=== PATIENT | female | born 1955 | race Caucasian/White ===

== ENCOUNTER 2016-09-24 11:45 | Inpatient (IN) | payer BC ==
[~2016-09-24] VITALS: Ht 154.9 cm; Wt 86.0 kg
[2016-09-24 12:00] VITALS: BP 137/83; PULSE 83; TEMP 36.7; O2SAT 96
[2016-09-24] MEDS ORDERED: ONDANSETRON INJ 2 MG/ML 2 ML VIAL IV PRN (13:00)
[2016-09-24] MEDS ORDERED: DEXTROSE 50% 50 ML SYR IV PRN (13:00)
[2016-09-24] MEDS ORDERED: GLUCOSE 10 TABS/TUBE PO PRN (13:00)
[2016-09-24] MEDS ORDERED: ALUMINUM/MAGNESIUM/SIMETH (MAALOX MAX) 30 ML UDC PO PRN (13:00)
[2016-09-24] MEDS ORDERED: GLUCOSE 40% GEL 15 GM TUBE PO PRN (13:00)
[2016-09-24] MEDS ORDERED: GLUCAGON FOR INJ 1 MG VIAL SQ PRN (13:00)
[2016-09-24] MEDS ORDERED: MAGNESIUM HYDROXIDE SUSP 30 ML UDC PO PRN (13:00)
[2016-09-24] MEDS ORDERED: ACETAMINOPHEN 325 MG TAB PO PRN (13:00)
[2016-09-24] MEDS ORDERED: POLYETHYLENE (MIRALAX) 17 GM PACK PO PRN (13:00)
[2016-09-24] MEDS ORDERED: PHARMACY GLYCEMIC MGMT CONSULT PRN (13:14)
[2016-09-24] MEDS ORDERED: MoRPHine SULFATE 2 MG/ML CARP IV PRN (13:15)
[2016-09-24] MEDS: SODIUM CHLORIDE 0.9% 1000ML 1,000 ML IV SCH ×2 (13:15→22:16)
[2016-09-24 13:28] LABS: HEMATOCRIT 34.9 % (37-47); MEAN CELL VOLUME 89.9 fL (80-100); MEAN CORPUSCULAR HEMOGLOBIN 28.9 pg (25-34); MEAN CORPUSCULAR HGB CONC 32.1 g/dl (32-36); MEAN PLATELET VOLUME 9.4 fL (7.4-10.4); PLATELET COUNT 312 K/uL (130-400); RED BLOOD COUNT 3.88 M/uL (4.2-5.4); WHITE BLOOD COUNT 12.14 K/uL (4.8-10.8)
[2016-09-24] MEDS ORDERED: PIPERACILL/TAZOBAC CONSULT ACTIVE PRN (13:30)
[2016-09-24] MEDS ORDERED: VANCOMYCIN CONSULT ACTIVE PRN (13:30)
[2016-09-24] MEDS ORDERED: PATIENT'S HEIGHT AND/OR WEIGHT NEEDED SCH (13:30)
--- NOTE | 2016-09-24 13:47 | Pharmacy Progress Note ---
Glycemic Control Intl Consult Date of Service Sep 24, 2016. Scope Glycemic Pharmacist consulted by Dr Jones on 09/24/16 for glycemic control and to write orders per [facility] inpatient glycemic control protocol Objective Laboratory Data (last 24hrs) Test 09/24/16 13:14 White Blood Count 12.14 K/uL Recent Pertinent Medications Outpatient Anti-diabetic Regimen: * metformin ER 1000mg PO BID * repaglinide 4mg PO TID before meals * glyburide 5mg PO BID with meals * A1c = 7.7 % per [facility] The patient is currently receiving: * Basal insulin: * none at this time * Correctional Insulin: * REGULAR INSULIN Correction per scale ACHS * Goal Range: Low 100 mg/dL - High 140 mg/dL * Correction Factor: 30 mg/dL/unit * Per carb ratio of 1 unit per 15 grams CHO consumed * Oral Agents: * non at this time Risk Factors for Insulin Resistance: * Infection: vancomycin and piperacillin/tazobactam - day #1 * IVF: NSS * Diet: T2DM/AHA Assessment & Plan ASSESSMENT: 09/24/16 * 61 y/o known type 2 diabetic who uses oral medication as an outpatient * PO medications on hold secondary to admission - will begin correctional insulin at this time for inpatient glycemic control * A1c from [facility] shows adequate glycemic control with home regimen PLAN FOR INPATIENT GLYCEMIC CONTROL: * Basal insulin - forgo at this time * Correctional insulin * Change from Regular insulin --> NovoLog AC and HS * Correction factor: 30mg/dL/unit * Carb ratio: 1 unit per 15g of CHO consumed * Goal range: 100-140mg/dL for non-elderly, non-ICU patient * Oral medications: * hold at this time * A1c - current * added to discharge instructions * Please note that the plan above was derived based on current level of insulin resistance and hospital stress. These recommendations are appropriate for inpatient admission only. Plan of care upon discharge will need to be reassessed to avoid potential outpatient hypo/hyperglycemia. Thank you.
[2016-09-24 13:48] VITALS: BMI 35.8
[2016-09-24] MEDS ORDERED: PIPERACILL/TAZOBAC IV 4.5 GM in DEXTROSE 5% 100ML IV ONE (14:00)
[2016-09-24] MEDS ORDERED: NRN300 PO (14:11)
[2016-09-24] MEDS ORDERED: VITACAP26 PO (14:11)
[2016-09-24] MEDS ORDERED: METH2.5T PO (14:11)
[2016-09-24] MEDS ORDERED: METF-382 PO (14:11)
[2016-09-24] MEDS ORDERED: ACET-1257 PO (14:11)
[2016-09-24] MEDS ORDERED: GLYB5TAB8 PO (14:11)
[2016-09-24] MEDS ORDERED: PRVHFAIN INH (14:11)
[2016-09-24] MEDS ORDERED: TNR25 PO (14:11)
[2016-09-24] MEDS ORDERED: QUIN40TA18 PO (14:11)
[2016-09-24] MEDS ORDERED: DSY100 PO (14:11)
[2016-09-24] MEDS ORDERED: MAGNTAB10 PO (14:11)
[2016-09-24] MEDS ORDERED: REPA1TAB10 PO (14:11)
[2016-09-24] MEDS ORDERED: CLN200 PO (14:11)
[2016-09-24] MEDS ORDERED: FLUT0.15 NAE (14:11)
[2016-09-24] MEDS ORDERED: NTRGSL4 PO (14:11)
[2016-09-24] MEDS ORDERED: CHOL100010 PO (14:11)
[2016-09-24] MEDS ORDERED: FLV1 PO (14:11)
[2016-09-24] MEDS ORDERED: SALI0.6593 NAE (14:11)
[2016-09-24] MEDS ORDERED: ASPI-435 PO (14:11)
[2016-09-24] MEDS ORDERED: SIMV-151 PO (14:11)
[2016-09-24] MEDS ORDERED: POLYSOL4 OP (14:11)
[2016-09-24] MEDS ORDERED: OMEP40CA41 PO (14:11)
[2016-09-24] MEDS ORDERED: HYDR25TA4 PO (14:11)
[2016-09-24] MEDS ORDERED: ARTIFICIAL TEARS OP SOLN OP PRN ×2 (14:15)
[2016-09-24] MEDS ORDERED: SODIUM CHLORIDE 0.65% NA SOLN 45 ML (OCEAN) NAE PRN (14:15)
[2016-09-24] MEDS ORDERED: ALBUTEROL HFA 8 GM INHALER INH PRN (14:15)
[2016-09-24] MEDS ORDERED: NITROGLYCERIN 0.4 MG SL PER TAB CHARGE SL PRN (14:15)
[2016-09-24 14:20] LABS: BUN/CREATININE RATIO 29.3 (10-20); CALCIUM 9.3 mg/dl (8.5-10.1); CREATININE 0.78 mg/dl (0.60-1.20); POTASSIUM 3.9 mmol/L (3.5-5.1)
[2016-09-24 14:21] LABS: PROTHROMBIN TIME (PATIENT) 10.2 SECONDS (9.0-12.0)
[2016-09-24 14:22] LABS: ALB/GLOB RATIO 0.9 (0.9-2)
--- NOTE | 2016-09-24 14:39 | History and Physical ---
History & Physical Date & Time of Service: Sep 24, 2016 at 14:12 Chief Complaint: Cellulitis Left Foot Primary Care Physician: Dangelo Monsalve M.D. History of Present Illness Source: patient, clinic records This is a 61 year old female with PMH of DM type 2, CAD, HTN, HL, RA, asthma, and other problems listed below who presents as a direct admission from Dr. Pope, bio medical technician, for left 2nd toe diabetic ulcer with cellulitis. Pt follows with Dr. Monsalve for primary care. Patient states she developed 2 ulcers on the L second toe in May 2016 after her dog stepped on her foot. She was seeing bio medical technician Dr. Alexey Sims initially. She is currently on second course of antibiotics (she is unsure the name) started 6 days ago. She reports associated pain, erythema, and drainage. She states last week the drainage was purulent, but now appears clear. She has been able to bear weight. She denies fevers, chills, weakness, chest pain, SOB, abdominal pain, N/V/D, dysuria, frequency. She states her Metformin was recently changed and blood sugars are running low at home. Patient had prior wound culture on 09/17/16 which grew MRSA. Past Medical/Surgical History Medical Problems: (1) Asthma Status: Chronic (2) CAD (coronary artery disease) Permanent Comment: NINA to RCA 2006 Status: Chronic (3) Diabetes mellitus, type II Status: Chronic (4) Dyslipidemia Status: Chronic (5) GERD (gastroesophageal reflux disease) Status: Chronic (6) HTN (hypertension) Status: Chronic (7) Morbid obesity Status: Chronic (8) Rheumatoid arthritis Status: Chronic Surgical Problems: (1) H/O foot surgery Permanent Comment: EXOSTECTOMY METATARSAL HEAD performed by Patrick Castillo DPM at [facility] 08/2015 Status: Resolved (2) H/O heart artery stent Permanent Comment: NINA to RCA 2006 Status: Resolved (3) History of cholecystectomy Status: Resolved (4) History of tubal ligation Status: Resolved Family History Cardiac disorder FATHER ([place]) BROTHER SISTER (CAD) Diabetes mellitus MOTHER Social History Smoking Status: Never Smoker Alcohol Use: occasionally Drug Use: none Marital Status: Housing status: lives with family Occupational Status: employed Allergies Coded Allergies: Hydrocodone (Verified Adverse Reaction, Intermediate, delirium, 09/26/16) Amlodipine (Verified Adverse Reaction, Mild, GI SYMPTOMS, 09/24/16) Home Medications Scheduled Acetaminophen (Tylenol Extra Strength), 1,000 MG PO HS Aspirin (Aspirin 81), 81 MG PO DAILY Atenolol (Atenolol), 12.5 MG PO DAILY Cholecalciferol (Vitamin D), 1,000 UNIT PO BID Daptomycin (Daptomycin), 350 MG IV DAILY Fluticasone Propionate (Nasal) (Flonase Allergy Relief), 2 SPRAYS NISA DAILY Folic Acid (Folic Acid), 1 MG PO DAILY Gabapentin (Gabapentin), 300 MG PO BID Glyburide (Micronase), 5 MG PO BIDM Hydrochlorothiazide (Hctz), 12.5 MG PO DAILY Magnesium Oxide (Mg Supplement (Mag-200), 200 MG PO DAILY Metformin Ext Rel (Glucophage Ext Rel), 1,000 MG PO BID Omeprazole (Prilosec), 40 MG PO DAILY Quinapril Hcl (Accupril), 40 MG PO HS Repaglinide (Repaglinide), 4 MG PO TIDM Sulindac (Sulindac), 1 TAB PO BID Trazodone HCl (Trazodone HCl), 50 MG PO BID Vitamins C & E (Vitamin C), 1,000 MG PO BID Scheduled PRN Albuterol (Ventolin Hfa), 2 PUFFS INH Q6 PRN for Shortness of Breath Nitroglycerin (Nitrostat), 1 TAB PO UD PRN for Chest Pain Oxycodone/Acetaminophen 5MG/325MG (Percocet 5MG/325MG), 1 TABLET PO Q6H PRN for Pain Polyethylene Glycol-Propylene (Systane), 1 DROPS OP QID PRN for DRYNESS Saline ([facility] Saline Nose [place]), 1 SPRAY NISA Q2H PRN for nasal congestion or dryness Review of Systems Constitutional: No chills, No fever Eyes: No worsening of vision ENT: No nasal symptoms Respiratory: No cough, No dyspnea on exertion, No shortness of breath Cardiovascular: No chest pain, No palpitations Abdomen: No diarrhea, No nausea, No pain, No vomiting Musculoskeletal: + problem reported (states joint pain is controlled) Genitourinary - Female: No dysuria, No urinary frequency Hematologic / Lymphatic: + abnormal bleeding/bruising (bruises easily. denies abnormal bleeding) Integumentary: + problem reported (see HPI) Physical Exam Vital Signs Date Time Temp Pulse Resp B/P Pulse Ox O2 Delivery O2 Flow Rate FiO2 09/24/16 12:00 Room Air 09/24/16 12:00 36.7 83 16 137/83 96 Room Air General Appearance: no apparent distress, + obese, + pertinent finding ( pleasant alert 61 year old female, at bedside) Head: normocephalic, atraumatic Eyes: normal inspection, sclerae normal ENT: hearing grossly normal Neck: supple, trachea midline Respiratory/Chest: lungs clear, normal breath sounds, no respiratory distress Cardiovascular: regular rate, rhythm, normal peripheral pulses Abdomen/GI: normal bowel sounds, non tender, soft Extremities/Musculoskelatal: no calf tenderness, normal capillary refill, no pedal edema, + pertinent finding (DP pulses 2+ bilaterally) Neurologic/Psych: alert, normal mood/affect, oriented x 3, + pertinent finding (grossly nonfocal ) Skin: warm/dry, + pertinent finding (superficial ulceration medial side of left 2nd toe, not actively draining, + surrounding erythma of the toe) Diagnostics Laboratory Results Results Past 24 Hours Test 09/24/16 13:03 09/24/16 13:14 09/24/16 13:46 09/24/16 13:57 Range/Units White Blood Count 12.14 4.8-10.8 K/uL Red Blood Count 3.88 4.2-5.4 M/uL Hemoglobin 11.2 12.0-16.0 g/dL Hematocrit 34.9 37-47 % Mean Corpuscular Volume 89.9 80-100 fL Mean Corpuscular Hemoglobin 28.9 25-34 pg Mean Corpuscular Hemoglobin Concent 32.1 32-36 g/dl RDW Standard Deviation 47.5 36.4-46.3 fL RDW Coefficient of Variation 14.6 11.5-14.5 % Platelet Count 312 130-400 K/uL Mean Platelet Volume 9.4 7.4-10.4 fL Lactic Acid Level 3.0 0.4-2.0 mmol/L Bedside Glucose 117 70-90 mg/dl Impression Assessment and Plan LEFT FOOT DIABETIC ULCER WITH CELLULITIS Afebrile; +leukocytosis (WBC 12.1); no tachycardia or hypotension; lactic acid 3.0 Sent for direct admission by bio medical technician Dr. Pope; also following with bio medical technician Dr. Sims Has been on unknown antibiotics as outpatient Wound culture on 09/17/16 which grew MRSA Check x-ray and MRI of left foot Check wound culture Empiric Vancomycin and Zosyn IV fluids Consult infectious disease and podiatry Consult would care nurse Trend serial lactic acid DM TYPE 2 Pt reports hypoglycemia at home Hold oral antidiabetic medications Insulin sliding scale coverage Consult pharmacy for glycemic control Check A1c HYPERTENSION BP is stable Continue atenolol Hold quinapril and HCTZ CAD Stable Continue aspirin, beta iglesia, statin DAVID-I held ASTHMA Not in exacerbation Continue home PRN inhaler RHEUMATOID ARTHRITIS Hold methotrexate during hospitalization GERD Continue PPI DVT PROPHYLAXIS Heparin SQ DISPOSITION Admitted to med/ surg Lives with Follows with Dr. Monsalve for primary care Patient seen in collaboration with Dr. Jones. Please see her addendum. ATTENDING NOTE : pt seen and examined, in agreement with above H&P by Carmen Felder 61 yo F sent form podiatry office of for non healing diabetic left foot infection MRI Of left foot ordered ; shows evidence of osteomyelitis PICC line ordered for senior care Abx may need 6-8 weeks of tx ID eval requested out pt wound culture + ve MRSA VTE Prophylaxis VTE Risk Assessment Done? Y/N: Yes Risk Level: Moderate
[2016-09-24] MEDS ORDERED: VANCOMYCIN INJ 2,150 MG in SODIUM CHLORIDE 0.9% 500ML 500 ML IV ONE (14:45)
--- NOTE | 2016-09-24 14:45 | Medical Consult ---
Consultation Date of Consultation: Sep 24, 2016. Attending Physician: Liya Wilsno DO Reason for Consultation: Diabetic left second toe ulceration- nonhealing History of Present Illness Patient is a 61 yo female presenting to the hospital for admission regarding left 2nd toe ulceration that has been nonhealing since May. The patient does have history of diabetes and rheumatoid arthritis with long-term treatment. She states that she has had a non-healing ulceration on her left 2nd toe since approximately May. At that time, her 40 lb dog stepped on her toe at home and caused an ulcer to form. She states that over the next month or so, her toe was swollen and red but she knew that she would be seeing Dr. Sims, her timber framer soon after to get her toenails cut, so she waited until that appointment to discuss these changes. She then was treated by Dr. Sims for infection in that toe. She was treated with 2 weeks of an antibiotic that she cannot remember the name of. She then was off of antibiotics for about 2 weeks and the infection relapsed. She notes gross purulence from her wound during her 2nd infection. It was then recommended to the patient that she see Dr. Aden for potential surgery on her 2nd toe. The patient states that she chronically has her 3rd toe overlapping her 2nd toe from her RA. The patient denies fever, sweats, chills, N/V/D, urinary symptoms, SOB, or chest pain. She does note some chronic swelling in her feet which she takes a "water pill" for. I did also speak to Dr. Jones about this patient. She provided information from outpatient [facility] record. The patient did have a wound culture completed of the left 2nd toe on 09/17/16 which grew MRSA resistant to Erythromycin, Oxacillin, and PCN. MRSA was sensitive to Vancomycin , Bactrim, Doxy, Rifampin, Gentamicin, and Clindamycin. Note that MRI and X- Rays of the left foot are pending along with repeat cultures. WBC count was 12.14 and Lactic acid was 3.0 on admission. She was placed empirically on IV Vancomycin and Zosyn. Past Medical/Surgical History Medical Problems: (1) Asthma (2) CAD (coronary artery disease) (3) Diabetes mellitus, type II (4) Diabetic infection of left foot (5) Dyslipidemia (6) GERD (gastroesophageal reflux disease) (7) HTN (hypertension) (8) Morbid obesity (9) Rheumatoid arthritis Surgical Problems: (1) H/O foot surgery (2) H/O heart artery stent (3) History of cholecystectomy (4) History of tubal ligation Family History Noncontributory Social History Smoking Status: Never Smoker Allergies Coded Allergies: Amlodipine (Verified Adverse Reaction, Mild, GI SYMPTOMS, 09/24/16) Home Medications Reported Home Medications Medications Dose Route/Sig Max Daily Dose Days Date Category Vitamin D (Cholecalciferol) 1,000 Unit Tab 1,000 Unit PO BID 09/24/16 Reported Vitamin C (Vitamins C & E) 1 Cap Cap 1,000 Mg PO BID 09/24/16 Reported Tylenol Extra Strength (Acetaminophen) 500 Mg Tab 1,000 Mg PO HS 09/24/16 Reported Trazodone HCl 100 Mg Tab 50 Mg PO BID 09/24/16 Reported Systane (Polyethylene Glycol-Propylene) 1 Mechelle Mechelel 1 Drops OP QID PRN 09/24/16 Reported Sulindac 200 Mg Tab 1 Tab PO BID 09/24/16 Reported Simvastatin 20 Mg Tab 20 Mg PO HS 09/24/16 Reported Repaglinide 2 Mg Tab 4 Mg PO TIDM 09/24/16 Reported Accupril (Quinapril HCl) 40 Mg Tab 40 Mg PO HS 09/24/16 Reported Prilosec (Omeprazole) 40 Mg Cap 40 Mg PO DAILY 09/24/16 Reported Nitrostat (Nitroglycerin) 0.4 Mg/1 Tab Subl 1 Tab PO UD PRN 09/24/16 Reported Methotrexate 2.5 Mg Tab 20 Mg PO WK 09/24/16 Reported Glucophage Ext Rel (Metformin HCl) 500 Mg Tab 1,000 Mg PO BID 30 09/24/16 Reported Mag-200 (Magnesium Oxide (Mg Supplement) 200 Mg Tab 200 Mg PO DAILY 09/24/16 Reported Hctz (Hydrochlorothiazide) 25 Mg Tab 12.5 Mg PO DAILY 09/24/16 Reported Micronase (Glyburide) 5 Mg Tab 5 Mg PO BIDM 09/24/16 Reported Gabapentin 300 Mg Cap 300 Mg PO BID 09/24/16 Reported Folic Acid 1 Mg Tab 1 Mg PO DAILY 09/24/16 Reported Flonase Allergy Relief (Fluticasone Propionate (Nasal)) 50 Mcg/Act Spr 2 Sprays NISA DAILY 09/24/16 Reported [facility] Saline Nose [place] (Saline) 0.65 % Spr 1 [place] NISA Q2H PRN 09/24/16 Reported Atenolol 25 Mg Tab 12.5 Mg PO DAILY 09/24/16 Reported Aspirin 81 (Aspirin) 81 Mg Tab 81 Mg PO DAILY 09/24/16 Reported Ventolin Hfa (Albuterol) 60 Puffs/5400 Mcg Aers 2 Puffs INH Q6 PRN 09/24/16 Reported Current Inpatient Medications Current Inpatient Medications Medications (Trade) Dose Ordered Sig/Josie Route Start Time Stop Time Status Last Admin Dose Admin Heparin Sodium (Porcine) (Heparin Sq 5000 Unit/0.5ml) 5,000 unit Q8H SQ 09/24/16 13:00 10/24/16 12:59 UNV Acetaminophen (Tylenol Tab) 650 mg Q4H PRN PO 09/24/16 13:00 10/24/16 12:59 Al Hydrox/Mg Hydrox/Simethicone (Maalox Max Susp) 15 ml Q4H PRN PO 09/24/16 13:00 10/24/16 12:59 Magnesium Hydroxide (Milk Of Magnesia Susp) 30 ml Q6H PRN PO 09/24/16 13:00 10/24/16 12:59 Polyethylene (Miralax Powder Packet) 17 gm DAILY PRN PO 09/24/16 13:00 10/24/16 12:59 Ondansetron HCl (Zofran Inj) 4 mg Q6H PRN IV 09/24/16 13:00 10/24/16 12:59 Insulin Aspart (novoLOG ASPART) SLIDING SCALE ACHS SC 09/24/16 17:15 10/24/16 17:14 Glucose (Glucose 40% Gel) 15-30 GRAMS 15 GRAMS... UD PRN PO 09/24/16 13:00 10/24/16 12:59 Glucose (Glucose Chew Tab) 4-8 Tablets 4 Tabl... UD PRN PO 09/24/16 13:00 10/24/16 12:59 Dextrose (Dextrose 50% 50ML Syringe) 25-50ML OF 50% DW IV FOR... UD PRN IV 09/24/16 13:00 10/24/16 12:59 Glucagon (Glucagon Inj) 1 mg UD PRN SQ 09/24/16 13:00 10/24/16 12:59 Miscellaneous Information 1 ea 1 ea UD PRN N/A 09/24/16 13:14 10/24/16 13:13 Vancomycin HCl 1000 mg/Sodium Chloride 270 ml @ 125 mls/hr Q12 IV 09/24/16 21:00 10/04/16 20:59 UNV Vancomycin HCl 1000 mg/Sodium Chloride 270 ml @ 125 mls/hr NOW STAT IV 09/24/16 13:06 09/24/16 15:15 UNV Piperacillin Sod/ Tazobactam Sod 3.375 gm/Dextrose 115 ml @ 200 mls/hr Q6 IV 09/24/16 13:15 10/04/16 13:14 UNV Sodium Chloride (Nss 1000ml) 1,000 ml @ 125 mls/hr Q8H IV 09/24/16 13:15 09/24/16 13:15 125 MLS/HR Morphine Sulfate (MoRPHine SULFATE INJ) 1 mg Q4 PRN IV 09/24/16 13:15 10/08/16 13:14 Miscellaneous Information (Patient'S Height And/Or Weight Needed) 1 ea Q15M N/A 09/24/16 13:30 10/24/16 13:29 09/24/16 13:30 1 EA Vancomycin HCl (Consult) 1 ea UD PRN N/A 09/24/16 13:30 10/24/16 13:29 Piperacillin Sod/ Tazobactam Sod 1 ea 1 ea UD PRN N/A 09/24/16 13:30 10/24/16 13:29 Piperacillin Sod/ Tazobactam Sod/ Dextrose (Zosyn Iv/D5 100ml) 120 ml @ 200 mls/hr NOW ONCE IV 09/24/16 14:00 09/24/16 14:35 Albuterol (Ventolin Hfa Inhaler) 2 puffs Q6 PRN INH 09/24/16 14:15 10/24/16 14:14 UNV Aspirin (Ecotrin Tab) 81 mg DAILY PO 09/25/16 09:00 10/25/16 08:59 UNV Atenolol (Tenormin Tab) 12.5 mg DAILY PO 09/25/16 09:00 10/25/16 08:59 UNV Cholecalciferol (Vitamin D Tab) 1,000 inter.unit BID PO 09/24/16 21:00 10/24/16 20:59 UNV Fluticasone Propionate (Flonase Nasal [place]) 2 sprays DAILY NISA 09/25/16 09:00 10/25/16 08:59 UNV Folic Acid (Folvite Tab) 1 mg DAILY PO 09/25/16 09:00 10/25/16 08:59 UNV Gabapentin (Neurontin Cap) 300 mg BID PO 09/24/16 21:00 10/24/16 20:59 UNV Nitroglycerin (Nitrostat Tab) 0.4 mg UD PRN SL 09/24/16 14:15 10/24/16 14:14 UNV Sodium Chloride ([place] Nasal [place]) 1 sprays Q2H PRN NISA 09/24/16 14:15 10/24/16 14:14 UNV Simvastatin (Zocor Tab) 20 mg HS PO 09/24/16 21:00 10/24/16 20:59 UNV Sulindac ([place] Tab) 200 mg BID PO 09/24/16 21:00 10/24/16 20:59 UNV Trazodone HCl (Desyrel Tab) 50 mg BID PO 09/24/16 21:00 10/24/16 20:59 UNV Non-Formulary Medication (Magnesium Oxide (Mg Supplement (Mag-200)) 200 mg DAILY PO 09/25/16 09:00 10/25/16 08:59 UNV Non-Formulary Medication (Omeprazole (Prilosec)) 40 mg DAILY PO 09/25/16 09:00 10/25/16 08:59 UNV Non-Formulary Medication (Polyethylene Glycol-Propylene (Systane)) 1 drops QID PRN OP 09/24/16 14:15 10/24/16 14:14 UNV Non-Formulary Medication (Vitamins C & E (Vitamin C)) 1,000 mg BID PO 09/24/16 21:00 10/24/16 20:59 UNV Review of Systems Constitutional: No chills, No fever, No sweats Eyes: No worsening of vision ENT: No hearing loss Respiratory: No cough, No shortness of breath, No sputum Cardiovascular: No chest pain Abdomen: No diarrhea, No nausea, No pain, No vomiting Musculoskeletal: + swelling (b/l feet- chronic), No joint pain Genitourinary - Female: No dysuria, No urinary frequency Integumentary: No itch, No new/changing skin lesions, No rash Physical Exam Date Time Temp Pulse Resp B/P Pulse Ox O2 Delivery O2 Flow Rate FiO2 09/24/16 13:48 Room Air 09/24/16 12:00 Room Air 09/24/16 12:00 36.7 83 16 137/83 96 Room Air General Appearance: no apparent distress, + obese Head: normocephalic, atraumatic Eyes: normal inspection, sclerae normal ENT: hearing grossly normal Neck: supple, trachea midline Respiratory/Chest: no respiratory distress, no accessory muscle use Cardiovascular: regular rate, rhythm Extremities/Musculoskelatal: + pertinent finding (mild edema of the bilateral feet) Neurologic/Psych: alert, normal mood/affect Skin: warm/dry, no rash, + pertinent finding (ulceration of the medial left 2nd toe with some moderate surrounding erythema. ) Laboratory Results Last 24 Hours Test 09/24/16 13:03 09/24/16 13:14 09/24/16 13:46 09/24/16 13:57 White Blood Count 12.14 K/uL Red Blood Count 3.88 M/uL Hemoglobin 11.2 g/dL Hematocrit 34.9 % Mean Corpuscular Volume 89.9 fL Mean Corpuscular Hemoglobin 28.9 pg Mean Corpuscular Hemoglobin Concent 32.1 g/dl RDW Standard Deviation 47.5 fL RDW Coefficient of Variation 14.6 % Platelet Count 312 K/uL Mean Platelet Volume 9.4 fL Lactic Acid Level 3.0 mmol/L Bedside Glucose 117 mg/dl Test 09/24/16 14:12 Assessment & Plan Patient with chronic, diabetic, nonhealing ulceration of the left 2nd toe infected with MRSA on culture from 09/17. Repeat culture pending, MRI and X-Rays pending. Currently the patient is on IV Vancomycin and Zosyn. These are appropriate pending further workup. We will follow and adjust as able.
--- NOTE | 2016-09-24 15:10 | HISTORY & PHYSICAL EXAMINATION ---
DATE OF ADMISSION: 09/24/2016 HISTORY OF PRESENT ILLNESS: A 61-year-old female presented to my office today for evaluation of foot ulceration from Dr. Sims's office and was a direct admission to the hospital. She notes pain and problems noted over the left second digit that is swollen. She has had an ulcer on that side shortly following the injury. She has a history of an injury that occurred in May while her dog bumped into it and has had a problem with the toe ever since. She notes shortly following this incident with the dog, she developed an ulcer over the toe. Dr. Sims has been treating this conservatively with no improvement. After stopping the antibiotics, the ulceration returns. She has had several doses of antibiotics on and off. Associated signs and symptoms include swelling, specifically after periods of long weightbearing. Past treatment has included antibiotics to help with the pain and the pressure over the area. She is currently ambulating in a surgery shoe. The patient notes she had no problems over the left second digit prior to this injury; however in speaking with Dr. Sims's office, he did communicate rheumatoid arthritis which the patient failed to mention on her intake form. She has also a history of diabetes for over a decade. She notes her blood sugars recently have been poorly controlled, hemoglobin A1c above 7.9 per the patient; however, recently they have adjusted her medications and now she notes she is running very low blood sugar. Blood sugar this morning was just over 50. She denies any fevers, chills and night sweats. She does note drainage over the toe on and off since the time of the injury in May. PAST SURGICAL HISTORY: Foot surgery in 2015, gallbladder surgery in 1980, cardiac stent placement in 2006. PAST MEDICAL HISTORY: Diabetes mellitus, gallbladder disease, cardiac disease, hyperlipidemia, hypertension, arthritis, back problems, rheumatoid arthritis and asthma. MEDICATIONS: Trazodone, vitamin C, Prandin/repaglinide, Clinoril, omeprazole, fish oil, magnesium, methotrexate, glyburide, vitamin D, Zocor, gabapentin, Accupril, calcium, aspirin, Tylenol, hydrochlorothiazide, albuterol, metformin, folic acid, nitro, atenolol. ALLERGIES: NORVASC, RESULTING IN SWELLING; VICODIN, RESULTING IN HALLUCINATIONS. FAMILY HISTORY: Asthma cardiovascular disease and diabetes. SOCIAL HISTORY: The patient denies smoking, alcohol use, illicit drug use, and STDs. REVIEW OF SYSTEMS: Unremarkable except chief complaint. PHYSICAL EXAMINATION: VITAL SIGNS: Height 5 feet, weight 190 pounds, body mass index 37. CONSTITUTIONAL: The patient appears mildly overweight. HEAD AND FACE: Head is normocephalic and atraumatic without any gross head, face, or neck masses. EYES: Conjunctival and pupillary light accommodation is normal. EARS, NOSE, MOUTH, AND THROAT: Unremarkable. NECK: Neck is supple. Trachea is midline without any adenopathy or crepitance palpable. CARDIOVASCULAR: Normal S1, S2 without murmur, gallops, rubs, or clicks noted. RESPIRATORY: Chest is symmetric. No scars are visible. No port or pacemaker noted. LUNGS: Clear to auscultation bilaterally and equal. GASTROINTESTINAL: Abdominal organs, bladder, and kidneys show no abnormalities, masses, tenderness, or rigidity. Positive bowel sounds are noted. LOWER EXTREMITIES: DP palpable, PT palpable 2/4, digital hair is absent. Edema not observed. DERMATOLOGIC: Inspection of the left hallux shows a cicatrix that is well healed with no hypertrophy. There is erythema noted from the left second digit, which is moderate. It is present circumferentially over the left second digit; however, it is not crossing the metatarsophalangeal joint. There is an ulceration medial interdigitally of the left second digit. The wound measures 0.3 with minimal tracking. There is no exposed bone; however, it is palpable. The muscle base characteristics are dermal to muscle. Exudate shows minimal serous drainage. Periwound characteristics include erythema and traumatic ulcer. NEUROLOGICAL: Epicritic sensation per [place]-Jacque monofilament 5.07, intact. MUSCULOSKELETAL: Muscle tone is normal. Muscle strength is 5/5 all groups tested. Inspection and palpation of bones, joints, muscles show left second digit abducted and PIP joint level plantar hypertrophy with large amount of protuberance, excessive bone formation noted over the left second digit. There is a sprain in the PIP joint, left second digit secondary to injury in May 2016 with digital contracture noted. Cellulitis is noted to the left second digit. IMPRESSION: Diabetes, Fernando grade 2 left second digit, rule out osteo versus rheumatoid changes from recent injury. Rheumatoid arthritis. PLAN: We discussed the case with Dr. Sims and reviewed his notes. I discussed the care and treatment plan with Dr. Sims at length. I asked for his overall impression. He was unsure if it was a direct osteo or related to the displacement of the toe in combination with rheumatoid arthritis. She has had multiple conservative treatments over the past 3-4 months with no resolution of her symptoms. The patient did have surgery which healed well on the left foot last year. We will admit to the floor with medical comanagement with Dr. Mondragon. Briefly spoke to Dr. Mondragon regarding accepting this patient and medically comanaging the patient. DIAGNOSES: Cellulitis, rule out osteomyelitis of left foot, diabetes, sprain of left second with dislocation history in May 2016. Rule out osteo versus rheumatoid displacement, traumatic ulcer. Recommended admission for better control of blood glucose and IV antibiotics. Consider surgical procedures once we obtain MRI, films were taken in the office. Recommend repeating these upon admission. There is no periosteal lifting, however, there is a PIP joint dislocation, which could be secondary to the osteo although could also be secondary to the sprain, history of trauma in combination with diabetes and rheumatoid arthritis. Instructed the patient we would perform the MRIs and recommended a minimum 24 hours of IV antibiotics prior to any surgical intervention and we would outline these procedures later after I got a chance to review the MRI. The patient will be empirically started on Ancef. Recommend ABIs and digital toe pressures be performed. The patient will be followed in the hospital following the admission. ANABELLE
[2016-09-24 15:17] VITALS: BP 144/83; PULSE 75; TEMP 36.5; O2SAT 96
--- NOTE | 2016-09-24 15:43 | Pharmacy Progress Note ---
Pharmacy Antibiotic Consult Date of Service: Sep 24, 2016. Pharmacy Dosing Scope Pharmacy is consulted to initiate Vancomycin and Zosyn IV dosing therapy, order appropriate labs and adjust drug dose/frequency. Subjective The patient is a 61 year old female admitted on Sep 24, 2016 at 11:45 with non healing ulcer on 2nd toe on left foot. She has been doctoring with her primary Dr. Sims and Dr. Pope. She has recently had a culture of (L) toe drainage and it grew MRSA. Today she is directly admitted to receive IV antibiotics. Dr. Jones has ordered both Zosyn and Vancomycin which will be dosed by pharmacy. Objective Height (Feet): 5 Height (Inches): 1.00 Weight (Kilograms): 86.000 Lab Results (24hrs): Laboratory Tests Test 09/24/16 13:14 BUN/Creatinine Ratio 29.3 Blood Urea Nitrogen 23 mg/dl Creatinine 0.78 mg/dl White Blood Count 12.14 K/uL Micro Results: 09/17 it is noted her wound drainage was positive MRSA Item Value Date Time Gram Stain Received 09/24/16 1400 Skin Toe Left 2 Pending MRSA DNA Surveillance Screen Received 09/24/16 1400 Nasal Pending Recent Pertinent Medications Item Value Date Time Piperacillin Sod/ 120 ml @ 30 mls/hr 09/24/16 2000 Tazobactam Sod Q8H/IV 4.5 gm/Dextrose Assessment & Plan Loading dose: Vancomycin 2150mg (~25mg/kg) IV X 1 dose then: Vancomycin 1200mg (~14mg/kg) every 12 hours. I estimated her half life to be around 10 hours. I will check a trough level prior to 0400 dose on 09/26/16. Goal trough level estimate: between 15-20 mcg/mL. Pharmacy will continue to follow and will adjust dose/frequency as necessary. Thank you
[2016-09-24 18:31] LABS: URINE APPEARANCE CLEAR (CLEAR); URINE BILIRUBIN NEG (NEG); URINE COLOR YELLOW; URINE NITRITE NEG (NEG); URINE PH 6.5 (4.5-7.5); URINE SPECIFIC GRAVITY 1.005 (1.000-1.030); UROBILINOGEN NEG (NEG); ZZUR CULT IF INDIC CLEAN CATCH NO
[2016-09-24 18:32] LABS: MANUAL MICROSCOPIC REQUIRED? NO; REVIEW REQ? NO
[2016-09-24] MEDS ORDERED: GADAVIST IV PRN (18:45)
--- NOTE | 2016-09-24 19:06 | DIAGNOSTIC IMAGING REPORT ---
LEFT FOOT MIN 3 VIEWS ROUTINE CLINICAL HISTORY: DIABETIC FOOT INFECTION COMPARISON: None. DISCUSSION: There are erosive osteoarthritic changes present the level of the interphalangeal joint of the great toe. There is a mild hallux valgus deformity. There is erosion involving the medial base of the proximal phalanx the great toe. There is a fracture dislocation at the level of the proximal interphalangeal joint the second toe. There is deformity of the fifth metatarsal head which is felt to be chronic. There is erosion involving the first metatarsal head. There are vascular calcifications present. No air is visualized in the soft tissues. The bones are osteopenic. IMPRESSION: Multiple bony abnormalities as described above including a fracture subluxation at the level of the proximal interphalangeal joint of the second toe. Also evident are bony erosions and a presumed chronic deformity the fifth metatarsal head. There is no air within soft tissues. Electronically signed by: Oral Adams M.D. 09/24/2016 7:05 PM Dictated Date/Time: 09/24/2016 7:02 PM
[2016-09-24] MEDS: INSULIN ASPART 100 UNITS/ML 3 ML PEN SC SCH ×2 (19:18→21:34)
--- NOTE | 2016-09-24 19:31 | DIAGNOSTIC IMAGING REPORT ---
MRI THE LEFT FOREFOOT WITHOUT AND WITH GADOLINIUM CLINICAL HISTORY: Left second toe nonhealing diabetic ulcer COMPARISON STUDY: Conventional radiographic study dated 09/24/2016 FINDINGS: Imaging was performed in sagittal coronal and axial planes before and after the administration of 8 cc of intravenous Gadavist. There are erosive osteoarthritic changes the level of the interphalangeal joint of the great toe. There are multiple bony erosions involving the first metatarsal head. There are bony erosions involving the fifth metatarsal head. There is a subchondral cyst involving the base of the fourth metatarsal. There is extensive marrow edema involving the proximal phalanx of the second phalanx, and base of the middle phalanx. There is a displaced fracture at the level of the proximal interphalangeal joint of the second toe. There is extensive surrounding soft tissue edema. There is an adjacent 5 mm fluid collection. There is extensive post gadolinium enhancement involving the second toe. There is synovial enhancement the level of the fifth metatarsal phalangeal joint and first metatarsal phalangeal joint. Diagnostic considerations for the findings involving the second toe include a traumatic fracture, versus osteomyelitis with a pathologic fracture. Correlation with any history of trauma is recommended. Also evident are findings consistent with an inflammatory arthritis with synovial enhancement, and multiple bony erosions IMPRESSION: 1. Pathologic marrow edema involving the proximal phalanx the second toe and middle phalanx the second toe. Diagnostic considerations include a traumatic fracture versus osteomyelitis with a pathologic fracture. There is surrounding soft tissue edema as well as a possible 5 mm soft tissue abscess. Correlation with history of prior trauma is recommended. In the absence of a traumatic history, given the history of an overlying nonhealing ulcer, the findings likely represent osteomyelitis with a pathologic displaced fracture. 2. Evidence of an inflammatory arthritis with synovial enhancement and multiple bony erosions, most pronounced at the level of the first and fifth metatarsal phalangeal joints Electronically signed by: Oarl Adams M.D. 09/24/2016 7:29 PM Dictated Date/Time: 09/24/2016 7:21 PM
[2016-09-24] MEDS: PIPERACILL/TAZOBAC IV 4.5 GM in DEXTROSE 5% 100ML 100 ML IV SCH (20:32)
[2016-09-24] MEDS: SULINDAC 200 MG TAB PO SCH (20:33)
[2016-09-24] MEDS: GABAPENTIN 300 MG CAP PO SCH (20:34)
[2016-09-24] MEDS: TRAZODONE HCL 50 MG TAB PO SCH (20:34)
[2016-09-24] MEDS: ASCORBIC ACID 500 MG TAB PO SCH (20:35)
[2016-09-24] MEDS: CHOLECALCIFEROL 1000 INTER.UNIT TAB PO SCH (20:35)
[2016-09-24] MEDS: SIMVASTATIN 20 MG TAB PO SCH (20:35)
[2016-09-24] MEDS: HEPARIN SOD 5000 UNIT/0.5 ML CARP SQ SCH (21:35)
[2016-09-25 00:04] VITALS: BP 106/67; PULSE 61; TEMP 36.3; O2SAT 92
[2016-09-25] MEDS: PIPERACILL/TAZOBAC IV 4.5 GM in DEXTROSE 5% 100ML 100 ML IV SCH ×3 (04:08→20:54)
[2016-09-25] MEDS: VANCOMYCIN INJ 1,200 MG in SODIUM CHLORIDE 0.9% 250ML 250 ML IV SCH ×2 (04:08→16:47)
[2016-09-25] MEDS: SODIUM CHLORIDE 0.9% 1000ML 1,000 ML IV SCH ×2 (05:47→16:50)
[2016-09-25] MEDS: HEPARIN SOD 5000 UNIT/0.5 ML CARP SQ SCH ×3 (05:47→21:06)
[2016-09-25 06:19] LABS: HEMATOCRIT 34.2 % (37-47); MEAN CELL VOLUME 89.5 fL (80-100); MEAN CORPUSCULAR HEMOGLOBIN 28.5 pg (25-34); MEAN CORPUSCULAR HGB CONC 31.9 g/dl (32-36); MEAN PLATELET VOLUME 9.6 fL (7.4-10.4); PLATELET COUNT 310 K/uL (130-400); RED BLOOD COUNT 3.82 M/uL (4.2-5.4); WHITE BLOOD COUNT 9.24 K/uL (4.8-10.8)
[2016-09-25 06:47] LABS: BUN/CREATININE RATIO 24.8 (10-20); CALCIUM 8.5 mg/dl (8.5-10.1); CREATININE 0.66 mg/dl (0.60-1.20); MAGNESIUM 1.8 mg/dl (1.8-2.4); POTASSIUM 3.9 mmol/L (3.5-5.1)
[2016-09-25 07:14] LABS: ESTIMATED AVERAGE GLUCOSE 174 mg/dl; HA1C FLAG Normal (Normal)
[2016-09-25 07:29] VITALS: BP 135/82; PULSE 59; TEMP 36.6; O2SAT 93
[2016-09-25] MEDS: CHOLECALCIFEROL 1000 INTER.UNIT TAB PO SCH ×2 (08:36→20:58)
[2016-09-25] MEDS: PANTOprazole SOD 40 MG TAB PO SCH (08:36)
[2016-09-25] MEDS: ASPIRIN 81 MG ECTAB PO SCH (08:36)
[2016-09-25] MEDS: GABAPENTIN 300 MG CAP PO SCH ×2 (08:37→20:59)
[2016-09-25] MEDS: ASCORBIC ACID 500 MG TAB PO SCH ×2 (08:37→20:57)
[2016-09-25] MEDS: TRAZODONE HCL 50 MG TAB PO SCH ×2 (08:37→21:00)
[2016-09-25] MEDS: SULINDAC 200 MG TAB PO SCH ×2 (08:39→20:58)
[2016-09-25] MEDS: FLUTICASONE PROPIONATE NA SPR 16 GM BTL NAE SCH (08:39)
[2016-09-25] MEDS: MAGNESIUM OXIDE 400 MG TAB PO SCH (08:39)
[2016-09-25 08:43] VITALS: BP 136/82; PULSE 71
[2016-09-25] MEDS: INSULIN ASPART 100 UNITS/ML 3 ML PEN SC SCH ×4 (08:50→21:00)
--- NOTE | 2016-09-25 08:50 | PROGRESS NOTE ---
DATE: 09/25/2016 FOLLOW-UP NOTE DATE: 09/25/2016. SUBJECTIVE: A 51-year-old female seen in my office yesterday and was a direct admission from my office. Currently under the care of [facility]. Antibiotics were started yesterday. The patient denies fevers, chills and night sweats. She still notes pain over the left second digit, currently ambulating in a surgery shoe. The patient has a history of trauma from her dog that started in May. She is a long-term patient of Dr. Sims and was sent to my office yesterday for consultation regarding possible surgical options to the left second digit. OBJECTIVE: VITAL SIGNS: Afebrile 36.6, pulse 59, respiration 18, blood pressure 135/82, pulse ox 93 O2 room air. LOWER EXTREMITY PHYSICAL EXAMINATION: DP 2/4, PT 2/4, focal edema noted to the left 2nd digit. Absence of digital hairs noted. DERMATOLOGIC: There is a cicatrix dorsal aspect of the left first digit. Erythema to the left second toe was greatly improved from yesterday, it is still residual more over the plantar area where the ulceration is present. There is an ulceration interdigitally medial on the left second digit measuring 0.3 cm down to the dermis, minimal serous drainage. NEUROLOGICAL: Epicritic sensation per [place]-Jacque monofilament 5.07 bilaterally. MUSCULOSKELETAL: Left second digit abducted, the PIP joint level. There is a large protuberance of excessive bone formation around the left second digit. Ulceration is overlying a displaced fracture medial aspect of left second toe. LABORATORY DATA: WBC this morning is 9.24, decreased from the 12.14 on admission. Creatinine 0.62. Hemoglobin A1c is pending. Lactic acid 3.0. Glucose is 239. BUN is 23. Wound culture pending. Gram stain shows no organisms, no WBCs. X-ray left foot shows a fracture dislocation at the level of the proximal interphalangeal joint of the second toe. Multiple bony abnormalities, subluxation of the PIP joint of the left second digit. There is no air within the soft tissue. MRI pathological marrow edema involving the proximal phalanx of second toe and middle phalanx of the left second toe. Surrounding soft tissue edema as well as a 5 mm soft tissue pocket of fluid, possible pathological displaced fracture versus inflammatory arthritis with synovial enhancement, multiple bony erosions pronounced at the level of the first and fifth metatarsophalangeal joints. IMPRESSION: 1. Cellulitis left second improved. 2. Fernando grade 2 ulceration left second digit, rule out osteomyelitis versus rheumatoid changes from recent injury. 3. History of a sprain PIP joint left second digit secondary to an injury in May with displaced fracture leading to ulceration. 4. Cellulitis, left second digit improved with IV antibiotics. 5. Diabetes mellitus. PLAN: Reviewed the MRI and the x-rays and offered the patient the following treatment options: Amputation, left second digit versus open reduction internal fixation as the clinical findings are unclear if this is a bone infection or pathological fracture leading to the ulceration. The patient does have a history of trauma in May, also severely displaced fracture could be leading to the ulceration over the plantar medial aspect of the toe. These options were discussed at length. She is aware that if the bone is infected ultimately she will need amputation left second digit. This amputation may be more proximal. Given the patient's history of trauma and clinical findings with no clear obvious osteomyelitis at this time recommended open reduction internal fixation of the left second digit with irrigation over the area. Reviewed procedure, risks and complications at length with the patient. Would recommend another 24 hours of IV antibiotics due to the open ulceration that is present. Will proceed with OR correction tomorrow and p.o. this evening. Continued the IV vancomycin. Will discuss the case with the hospitalist when available. All questions were answered at bedside. 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
--- NOTE | 2016-09-25 12:09 | Hospitalist Progress Note ---
Hospitalist Progress Note Date of Service Sep 25, 2016. ([facility] CRNP) Subjective Patient seen and examined. Feeling well. Reports pain in left 2nd toe controlled. Denies fever and chills. No chest pain or shortness of breath. Denies lightheadedness or dizziness. No abdominal pain or nausea. (Unique [facility]er CRNP) Objective Vital Signs Date Time Temp Pulse Resp B/P Pulse Ox O2 Delivery O2 Flow Rate FiO2 09/25/16 08:43 71 136/82 09/25/16 07:29 36.6 59 18 135/82 93 Room Air 09/25/16 07:25 Room Air 09/25/16 00:05 Room Air 09/25/16 00:04 36.3 61 16 106/67 92 Room Air 09/24/16 15:17 36.5 75 18 144/83 96 Room Air 09/24/16 15:15 Room Air 09/24/16 13:48 Room Air 09/24/16 12:00 Room Air 09/24/16 12:00 36.7 83 16 137/83 96 Room Air (Unique Al[facility]er CRNP) Physical Exam General Appearance: no apparent distress Eyes: normal inspection ENT: hearing grossly normal Neck: supple, no JVD Respiratory/Chest: lungs clear, normal breath sounds, no respiratory distress Cardiovascular: regular rate, rhythm, no edema, + normal peripheral pulses Abdomen: normal bowel sounds, non tender, soft Neurologic/Psychiatric: no motor/sensory deficits, alert, normal mood/affect, oriented x 3 Skin: + pertinent finding (dressing to left foot dry and intact, no surrounding erythema noted) (Unique Al[facility]er CRNP) Laboratory Results Last 24 Hours Test 09/24/16 13:14 09/24/16 13:46 09/24/16 13:57 09/24/16 17:08 White Blood Count 12.14 K/uL Red Blood Count 3.88 M/uL Hemoglobin 11.2 g/dL Hematocrit 34.9 % Mean Corpuscular Volume 89.9 fL Mean Corpuscular Hemoglobin 28.9 pg Mean Corpuscular Hemoglobin Concent 32.1 g/dl RDW Standard Deviation 47.5 fL RDW Coefficient of Variation 14.6 % Platelet Count 312 K/uL Mean Platelet Volume 9.4 fL Sodium Level 140 mmol/L Potassium Level 3.9 mmol/L Chloride Level 103 mmol/L Carbon Dioxide Level 24 mmol/L Anion Gap 13.0 mmol/L Blood Urea Nitrogen 23 mg/dl Creatinine 0.78 mg/dl Est Creatinine Clear Calc Drug Dose 75.4 ml/min Estimated GFR () 95.1 Estimated GFR (Non- 82.1 BUN/Creatinine Ratio 29.3 Random Glucose 160 mg/dl Lactic Acid Level 3.0 mmol/L Calcium Level 9.3 mg/dl Total Bilirubin 0.3 mg/dl Aspartate Amino Transf (AST/SGOT) 12 U/L Alanine Aminotransferase (ALT/SGPT) 24 U/L Alkaline Phosphatase 120 U/L Total Protein 7.0 gm/dl Albumin 3.3 gm/dl Globulin 3.7 gm/dl Albumin/Globulin Ratio 0.9 Hepatitis C Antibody Screen NEG Bedside Glucose 117 mg/dl 144 mg/dl Prothrombin Time 10.2 SECONDS Prothromb Time International Ratio 1.0 Activated Partial Thromboplast Time 27.0 SECONDS Partial Thromboplastin Ratio 1.0 Test 09/24/16 17:45 09/24/16 20:30 09/24/16 21:11 09/24/16 23:48 Urine Color YELLOW Urine Appearance CLEAR Urine pH 6.5 Urine Specific [place] 1.005 Urine Protein NEG Urine Glucose (UA) NEG Urine Ketones NEG Urine Occult Blood NEG Urine Nitrite NEG Urine Bilirubin NEG Urine Urobilinogen NEG Urine Leukocyte Esterase TRACE Urine WBC (Auto) 1-5 /hpf Urine RBC (Auto) 0-4 /hpf Urine Hyaline Casts (Auto) 0 /lpf Urine Epithelial Cells (Auto) 5-10 /lpf Urine Bacteria (Auto) NEG Lactic Acid Level 1.5 mmol/L 1.7 mmol/L Bedside Glucose 239 mg/dl Test 09/25/16 03:45 09/25/16 05:30 09/25/16 05:50 09/25/16 07:45 Lactic Acid Level 1.2 mmol/L 1.1 mmol/L Estimated Average Glucose 174 mg/dl Hemoglobin A1c 7.7 % White Blood Count 9.24 K/uL Red Blood Count 3.82 M/uL Hemoglobin 10.9 g/dL Hematocrit 34.2 % Mean Corpuscular Volume 89.5 fL Mean Corpuscular Hemoglobin 28.5 pg Mean Corpuscular Hemoglobin Concent 31.9 g/dl RDW Standard Deviation 46.8 fL RDW Coefficient of Variation 14.5 % Platelet Count 310 K/uL Mean Platelet Volume 9.6 fL Sodium Level 143 mmol/L Potassium Level 3.9 mmol/L Chloride Level 108 mmol/L Carbon Dioxide Level 27 mmol/L Anion Gap 8.0 mmol/L Blood Urea Nitrogen 16 mg/dl Creatinine 0.66 mg/dl Est Creatinine Clear Calc Drug Dose 89.1 ml/min Estimated GFR () 110.5 Estimated GFR (Non- 95.3 BUN/Creatinine Ratio 24.8 Random Glucose 135 mg/dl Calcium Level 8.5 mg/dl Magnesium Level 1.8 mg/dl Test 09/25/16 08:12 Bedside Glucose 128 mg/dl ([facility] Al[facility]er, MIROSLAVA) Diagnostic Results LEFT FOOT MRI IMPRESSION: 1. Pathologic marrow edema involving the proximal phalanx the second toe and middle phalanx the second toe. Diagnostic considerations include a traumatic fracture versus osteomyelitis with a pathologic fracture. There is surrounding soft tissue edema as well as a possible 5 mm soft tissue abscess. Correlation with history of prior trauma is recommended. In the absence of a traumatic history, given the history of an overlying nonhealing ulcer, the findings likely represent osteomyelitis with a pathologic displaced fracture. 2. Evidence of an inflammatory arthritis with synovial enhancement and multiple bony erosions, most pronounced at the level of the first and fifth metatarsal phalangeal joints (Unique Alcocer, MIROSLAVA) Assessment and Plan INFECTED LEFT FOOT DIABETIC ULCER, POSSIBLE OSTEOMYELITIS - referred for direct admission by elevator operator Dr. Pope - hx of trauma/persistent infection since May 2016 - wound culture 09/17/16 + MRSA - on admission - + leukocytosis, + lactic acid 3.0; no tachycardia or hypotension - WBC and lactic acid normalized - currently on IV Vanco and Zosyn - will continue until wound culture finalized - per Dr. Pope - patient will need 6 weeks IV Vanco; will get PICC line placed - ID on board - per Dr. Ríos "findings are unclear if this is a bone infection or pathological fracture leading to the ulceration" - planning for OR tomorrow for ORIF left second digit, possible amputation - discussed with Dr. Pope - likely will receive IV sedation; patient has history of CAD s/p NINA to RCA 2006, negative Lexiscan stress test 10/2015; patient denies any exertional chest pain or shortness of breath; check EKG and if no changes, patient can proceed to OR and be considered low-moderate risk DM TYPE 2 - hgb a1c 7.7 - blood sugars controlled - holding oral agents and utilize SSI while hospitalized HYPERTENSION - BP controlled, continue atenolol - quinapril held on admission, will resume - holding HCTZ CAD - no reports of chest pain - continue ASA, beta iglesia, statin - checking pre op EKG ASTHMA - no signs of acute exacerbation RHEUMATOID ARTHRITIS - holding methotrexate during hospitalization GERD - PPI DVT PROPHYLAXIS - Heparin SQ - hold AM dose for surgery (Unique Alcocer ., MIROSLAVA) Pt was seen and examined. Agreed with [facility] [place] exam, assessment and plan. She had a wound cx on 09/17/16 that grew + MRSA. Dr. Pope planing to go to the OR for possible amputation of 2nd left digit. currently on zosyn and vanco. Pt has a functional capacity with a MET greater that 4. denies any chest pain, palpitation, dizziness and SOB. Pt is medically stable to go to surgery. (Anisha Browne M.D.)
--- NOTE | 2016-09-25 12:18 | DIAGNOSTIC IMAGING REPORT ---
CHEST 2 VIEWS ROUTINE CLINICAL HISTORY: pre op dyspnea COMPARISON STUDY: No previous studies for comparison. FINDINGS: PICC catheter in superior vena cava. No evidence pneumothorax. Lungs are clear. Diaphragms smooth. IMPRESSION: No acute process. Electronically signed by: Steve Paul M.D. 09/25/2016 12:17 PM Dictated Date/Time: 09/25/2016 12:14 PM
[2016-09-25 12:57] VITALS: Ht 154.9 cm; Wt 86.0 kg
--- NOTE | 2016-09-25 13:23 | Pharmacy Progress Note ---
Glycemic Control: Progress Nt Date of Service Sep 25, 2016. Scope Glycemic Pharmacist consulted by Dr Jones on 09/24/16 for glycemic control and to write orders per [facility] inpatient glycemic control protocol. Objective Accuchecks BSG (last 24hrs): Test 09/24/16 13:14 09/24/16 13:46 09/24/16 17:08 09/24/16 21:11 Random Glucose 160 mg/dl (70-99) Bedside Glucose 117 mg/dl (70-90) 144 mg/dl (70-90) 239 mg/dl (70-90) Test 09/25/16 05:50 09/25/16 08:12 09/25/16 11:56 Random Glucose 135 mg/dl (70-99) Bedside Glucose 128 mg/dl (70-90) 225 mg/dl (70-90) Laboratory Data (last 24hrs) Test 09/24/16 13:14 09/25/16 05:30 09/25/16 05:50 Anion Gap 13.0 mmol/L 8.0 mmol/L BUN/Creatinine Ratio 29.3 24.8 Blood Urea Nitrogen 23 mg/dl 16 mg/dl Creatinine 0.78 mg/dl 0.66 mg/dl Potassium Level 3.9 mmol/L 3.9 mmol/L Sodium Level 140 mmol/L 143 mmol/L White Blood Count 12.14 K/uL 9.24 K/uL Hemoglobin A1c 7.7 % HbA1c: Test 09/25/16 05:30 Hemoglobin A1c 7.7 % (4.5-5.6) H Recent Pertinent Medications Outpatient Anti-diabetic Regimen: * metformin ER 1000mg PO BID * repaglinide 4mg PO TID before meals * glyburide 5mg PO BID with meals * A1c = 7.7 % per [facility] The patient is currently receiving: * Basal insulin: * none at this time * Correctional Insulin: * NOVOLOG Correction per scale ACHS * Goal Range: Low 100 mg/dL - High 140 mg/dL * Correction Factor: 30 mg/dL/unit * Per carb ratio of 1 unit per 15 grams CHO consumed * Oral Agents: * non at this time Risk Factors for Insulin Resistance: * Infection * IVF * Diet Assessment & Plan ASSESSMENT: 09/24/16 * 61 y/o known type 2 diabetic who uses oral medication as an outpatient * PO medications on hold secondary to admission - will begin correctional insulin at this time for inpatient glycemic control * A1c from [facility] shows adequate glycemic control with home regimen 09/25/16 * Fasting BSG 128 mg/dL, Lunch BSG 225 mg/dL * Patient was to receive correction last night for a BSG of 239 mg/dL but nursing held since she received dinner insulin late * At this point, I will tighten her Novolog slightly and reassess her tomorrow once I have more data * Of note, CDE called pharmacy after speaking with patient * 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, 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- currently only checking in AM * Pt complains of hypoglycemic episodes recently, citing BSGs in the 50's in the morning * She did not tolerate regular metformin so she recently was initiated on metformin ER 1000 mg BIDM and since this change, has been having the low BSGs in the morning; also shakiness at night * Changes will need to be made at discharge but I will need at least 24 hours to assess patient before making recommendation PLAN FOR INPATIENT GLYCEMIC CONTROL: * Basal insulin - forgo at this time * Tighten Correctional insulin * Novolog ACHS * Correction factor: 25 mg/dL/unit * Carb ratio: 1 unit per 12g of CHO consumed * Goal range: 100-140mg/dL for non-elderly, non-ICU patient * Oral medications: * hold at this time * A1c - current * added to discharge instructions LOOKING AHEAD TO DISCHARGE: * Patient having hypoglycemia at home- will require a change to medications * Please note that the plan above was derived based on current level of insulin resistance and hospital stress. These recommendations are appropriate for inpatient admission only. Plan of care upon discharge will need to be reassessed to avoid potential outpatient hypo/hyperglycemia. Thank you.
--- NOTE | 2016-09-25 15:14 | Anesthesiology Progress Note ---
Anesthesia Progress Note Date of Service Sep 25, 2016. Progress Notes Patient seen and consented for scheduled ORIF of left toe verse amputation on 09/26/[address] Pope. Patient history: Diabetes mellitus, CAD with NINA to LAD 2006, hyperlipidemia, hypertension, arthritis, rheumatoid arthritis and asthma. Patient had recent surgery on left foot in 2015 with continuing ulcer/cellulitis . Discussed anesthetic options and risk with patient and consented for General and MAC.
[2016-09-25 15:20] VITALS: BP 106/57; PULSE 74; TEMP 36.6; O2SAT 92
[2016-09-25] MEDS: SIMVASTATIN 20 MG TAB PO SCH (20:56)
[2016-09-25] MEDS: ENALAPRIL MALEATE 10 MG TAB PO SCH (21:01)
[2016-09-25 23:13] VITALS: BP 94/60; PULSE 50; TEMP 36.7; O2SAT 92
[2016-09-26] VITALS (11 sets, daily range): BP systolic 107–137; BP diastolic 64–81; PULSE 53–76; TEMP 36.3–37.6; O2SAT 91–94
[2016-09-26] MEDS ORDERED: VANCOMYCIN TROUGH SCH (03:30)
[2016-09-26 03:46] LABS: HEMATOCRIT 33.8 % (37-47); MEAN CELL VOLUME 90.6 fL (80-100); MEAN PLATELET VOLUME 9.5 fL (7.4-10.4); PLATELET COUNT 282 K/uL (130-400); RED BLOOD COUNT 3.73 M/uL (4.2-5.4); WHITE BLOOD COUNT 9.45 K/uL (4.8-10.8)
[2016-09-26] MEDS: PIPERACILL/TAZOBAC IV 4.5 GM in DEXTROSE 5% 100ML 100 ML IV SCH ×2 (04:07→11:20)
[2016-09-26] MEDS: VANCOMYCIN INJ 1,200 MG in SODIUM CHLORIDE 0.9% 250ML 250 ML IV SCH ×2 (04:07→16:11)
[2016-09-26 04:35] LABS: BUN/CREATININE RATIO 16.7 (10-20); CALCIUM 8.7 mg/dl (8.5-10.1); CREATININE 0.84 mg/dl (0.60-1.20); MAGNESIUM 1.9 mg/dl (1.8-2.4); POTASSIUM 4.2 mmol/L (3.5-5.1)
[2016-09-26] MEDS ORDERED: NURSING VERBAL MED ORDER ONE ×2 (04:45→15:00)
[2016-09-26] MEDS: INSULIN ASPART 100 UNITS/ML 3 ML PEN SC SCH ×4 (06:15→21:03)
[2016-09-26] MEDS: SULINDAC 200 MG TAB PO SCH ×2 (08:19→20:16)
[2016-09-26] MEDS: PANTOprazole SOD 40 MG TAB PO SCH (08:19)
[2016-09-26] MEDS: ASPIRIN 81 MG ECTAB PO SCH (08:19)
[2016-09-26] MEDS: MAGNESIUM OXIDE 400 MG TAB PO SCH (08:19)
[2016-09-26] MEDS: TRAZODONE HCL 50 MG TAB PO SCH ×2 (08:19→20:17)
[2016-09-26] MEDS: FLUTICASONE PROPIONATE NA SPR 16 GM BTL NAE SCH (08:19)
[2016-09-26] MEDS: GABAPENTIN 300 MG CAP PO SCH ×2 (08:19→20:15)
[2016-09-26] MEDS: ASCORBIC ACID 500 MG TAB PO SCH ×2 (08:20→20:15)
[2016-09-26] MEDS: CHOLECALCIFEROL 1000 INTER.UNIT TAB PO SCH ×2 (08:20→20:14)
--- NOTE | 2016-09-26 09:19 | Pharmacy Progress Note ---
Pharmacy Antibiotic Prog Note Date of Service: Sep 26, 2016. Subjective: The patient is currently receiving VANCOMYCIN 1200mg IV every 12 hours. The patient is currently on day # 3 of VANCOMYCIN / ZOSYN IV therapy. Objective: Height (Feet): 5 Height (Inches): 1.00 Weight (Kilograms): 86.000 Levels: Item Value Date Time Vancomycin Level Trough 14.9 mcg/ml 09/26/16 0327 Lab Results (24hrs): Laboratory Tests Test 09/26/16 03:27 BUN/Creatinine Ratio 16.7 Blood Urea Nitrogen 14 mg/dl Creatinine 0.84 mg/dl White Blood Count 9.45 K/uL Micro Results: * 09/24/16 -- Nasal Swab -- (+) MRSA * 09/24/16 -- Skin, Left Toe 2 -- staph sp Assessment & Plan: 61yo female receiving VANCOMYCIN / ZOSYN for L foot/toe cellulitis. Renal function has been stable. VANCOMYCIN: * Patient has been receiving VANCOMYCIN 1200mg (~14mg/kg) IV q12h. * Trough level drawn prior to 0400 dose this am = 14.9 mcg/mL. * This drug level is Therapeutic. * Continue VANCOMYCIN 1200mg IV every 12 hours. * Goal trough level estimate: between 15 - 20 mcg/mL. * Will recheck a trough level in a few days or with any changes in renal function. Pharmacy will continue to follow and will adjust dose/frequency as necessary. Thank you
--- NOTE | 2016-09-26 09:25 | Hospitalist Progress Note ---
Hospitalist Progress Note Date of Service Sep 26, 2016. ([place] CRNP) Subjective Patient seen and examined. For OR today at 1:30 Feels well, no complaints. Denies chest pain, shortness of breath. No lightheadedness or dizziness. Denies abdominal pain, nausea, or diarrhea. (Unique [place] CRNP) Objective Vital Signs Date Time Temp Pulse Resp B/P Pulse Ox O2 Delivery O2 Flow Rate FiO2 09/26/16 08:06 37.6 53 15 120/66 93 Room Air 09/26/16 07:50 92 Room Air 09/26/16 04:15 107/68 09/25/16 23:13 36.7 50 18 94/60 92 Room Air 09/25/16 15:20 36.6 74 18 106/57 92 Room Air (Unique [place] CRNP) Physical Exam General Appearance: no apparent distress Eyes: normal inspection ENT: hearing grossly normal Neck: supple, no JVD Respiratory/Chest: lungs clear, normal breath sounds, no respiratory distress Cardiovascular: regular rate, rhythm, no edema Abdomen: normal bowel sounds, non tender, soft Neurologic/Psychiatric: no motor/sensory deficits, alert, normal mood/affect, oriented x 3 Skin: + pertinent finding (dressing dry and intact to left foot ) (Unique [place] CRNP) Laboratory Results Last 24 Hours Test 09/25/16 11:56 09/25/16 17:04 09/25/16 20:48 09/26/16 03:27 Bedside Glucose 225 mg/dl 115 mg/dl 119 mg/dl White Blood Count 9.45 K/uL Red Blood Count 3.73 M/uL Hemoglobin 10.8 g/dL Hematocrit 33.8 % Mean Corpuscular Volume 90.6 fL Mean Corpuscular Hemoglobin 29.0 pg Mean Corpuscular Hemoglobin Concent 32.0 g/dl RDW Standard Deviation 47.1 fL RDW Coefficient of Variation 14.6 % Platelet Count 282 K/uL Mean Platelet Volume 9.5 fL Sodium Level 145 mmol/L Potassium Level 4.2 mmol/L Chloride Level 108 mmol/L Carbon Dioxide Level 27 mmol/L Anion Gap 10.0 mmol/L Blood Urea Nitrogen 14 mg/dl Creatinine 0.84 mg/dl Est Creatinine Clear Calc Drug Dose 70.0 ml/min Estimated GFR () 86.9 Estimated GFR (Non- 75.0 BUN/Creatinine Ratio 16.7 Random Glucose 145 mg/dl Calcium Level 8.7 mg/dl Magnesium Level 1.9 mg/dl Vancomycin Level Trough 14.9 mcg/ml Test 09/26/16 05:58 Bedside Glucose 141 mg/dl (Unique Alcocer CRNP) Assessment and Plan INFECTED LEFT FOOT DIABETIC ULCER, POSSIBLE OSTEOMYELITIS - referred for direct admission by traffic law attorney Dr. Pope - hx of trauma/persistent infection since May 2016 - wound culture 09/17/16 + MRSA - on admission - + leukocytosis, + lactic acid 3.0; no tachycardia or hypotension - WBC and lactic acid normalized - currently on IV Vanco and Zosyn - will continue until wound culture finalized - per Dr. Pope - patient will need 6 weeks IV Vanco; PICC line placed - ID on board - per Dr. Ríos "findings are unclear if this is a bone infection or pathological fracture leading to the ulceration" - planning for OR today for ORIF left second digit, possible amputation - history of CAD s/p NINA to RCA 2006, negative Lexiscan stress test 10/2015; patient denies any exertional chest pain or shortness of breath; EKG preformed on 09/25 unchanged from prior, patient can proceed to OR and be considered low- moderate risk DM TYPE 2 - hgb a1c 7.7 - blood sugars controlled - holding oral agents and utilize SSI while hospitalized HYPERTENSION - BP controlled, continue atenolol and quinapril - holding HCTZ CAD - no reports of chest pain - continue ASA, beta iglesia, statin ASTHMA - no signs of acute exacerbation RHEUMATOID ARTHRITIS - holding methotrexate during hospitalization GERD - PPI DVT PROPHYLAXIS - Heparin SQ - on hold for surgery (Unique Alcocer CRNP) Attending Addendum Pt was seen and examined. Agreed with [facility] [place] exam, assessment and plan. Wound cx grew coag negative staph. s/p surgery in the left 2nd digit by Dr. Pope. D/C zosyn and continue vanco. Pt will need IV Vanco for 6 weeks and daily wound care dressing. Continue monitor h/h. (Anisha Browne M.D.)
--- NOTE | 2016-09-26 09:48 | History & Physical Bridge Note ---
H&P Re-Evaluation Bridge Note: I have examined the patient, reviewed the History & Physical and in the interval since the performance of the History & Physical I have noted the following changes of clinical significance: No changes noted
[2016-09-26] MEDS ORDERED: MIDAZOLAM HCL 1 MG/ML 2ML VIAL ONE (10:19)
[2016-09-26] MEDS ORDERED: FENTANYL CITRATE INJ 50 MCG/1 ML 2 ML VIAL ONE (10:19)
[2016-09-26] MEDS ORDERED: ATROPINE SULFATE 0.1 MG/ML 5ML SYR IV PRN (10:30)
[2016-09-26] MEDS ORDERED: FENTANYL CITRATE INJ 50 MCG/1 ML 2 ML VIAL IV PRN (10:30)
[2016-09-26] MEDS ORDERED: EpHEDrine SULFATE INJ 50 MG/ML AMP IV PRN (10:30)
[2016-09-26] MEDS ORDERED: PROMETHAZINE HCL INJ 6.25 MG in SODIUM CHLORIDE 0.9% 50ML 50 ML IV PRN (10:30)
[2016-09-26] MEDS ORDERED: ONDANSETRON INJ 2 MG/ML 2 ML VIAL IV PRN (10:30)
[2016-09-26] MEDS ORDERED: LIDOCAINE HCL 2% 2 ML VIAL (20MG/ML) ONE (10:46)
[2016-09-26] MEDS ORDERED: PROPOFOL IV EMULSION 10 MG/ML 20 ML VIAL IV ONE (10:54)
[2016-09-26] MEDS: SODIUM CHLORIDE 0.9% 1000ML 1,000 ML IV SCH (11:20)
--- NOTE | 2016-09-26 11:20 | Pharmacy Progress Note ---
Glycemic Control: Progress Nt Date of Service Sep 26, 2016. Scope Glycemic Pharmacist consulted by Dr Jones on 09/24/16 for glycemic control and to write orders per [facility] inpatient glycemic control protocol. Objective Accuchecks BSG (last 24hrs): Test 09/25/16 11:56 09/25/16 17:04 09/25/16 20:48 09/26/16 03:27 Bedside Glucose 225 mg/dl (70-90) 115 mg/dl (70-90) 119 mg/dl (70-90) Random Glucose 145 mg/dl (70-99) Test 09/26/16 05:58 Bedside Glucose 141 mg/dl (70-90) Laboratory Data (last 24hrs) Test 09/26/16 03:27 Anion Gap 10.0 mmol/L BUN/Creatinine Ratio 16.7 Blood Urea Nitrogen 14 mg/dl Creatinine 0.84 mg/dl Potassium Level 4.2 mmol/L Sodium Level 145 mmol/L White Blood Count 9.45 K/uL HbA1c: Test 09/25/16 05:30 Hemoglobin A1c 7.7 % (4.5-5.6) H Recent Pertinent Medications Outpatient Anti-diabetic Regimen: * metformin ER 1000mg PO BID * repaglinide 4mg PO TID before meals * glyburide 5mg PO BID with meals * A1c = 7.7 % [facility] The patient is currently receiving: * Basal insulin: * none at this time * Correctional Insulin: * NOVOLOG Correction per scale ACHS * Goal Range: Low 100 mg/dL - High 140 mg/dL * Correction Factor: 25 mg/dL/unit * Per carb ratio of 1 unit per 12 grams CHO consumed * Oral Agents: * none at this time Risk Factors for Insulin Resistance: * Infection * IVF * Diet Assessment & Plan ASSESSMENT: 09/24/16 * 61 y/o known type 2 diabetic who uses oral medication as an outpatient * PO medications on hold secondary to admission - will begin correctional insulin at this time for inpatient glycemic control * A1c from [facility] shows adequate glycemic control with home regimen 09/25/16 * Fasting BSG 128 mg/dL, Lunch BSG 225 mg/dL * Patient was to receive correction last night for a BSG of 239 mg/dL but nursing held since she received dinner insulin late * At this point, I will tighten her Novolog slightly and reassess her tomorrow once I have more data * Of note, CDE called pharmacy after speaking with patient * 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, 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- currently only checking in AM * Pt complains of hypoglycemic episodes recently, citing BSGs in the 50's in the morning * She did not tolerate regular metformin so she recently was initiated on metformin ER 1000 mg BIDM and since this change, has been having the low BSGs in the morning; also shakiness at night * Changes will need to be made at discharge but I will need at least 24 hours to assess patient before making recommendation 09/26/16 * BSGs have been well-controlled for the past 24 hours * Total units of insulin yesterday=14 units * Pt is NPO this AM for procedure * Continue current regimen X 24 hours and reassess in the AM PLAN FOR INPATIENT GLYCEMIC CONTROL: * Basal insulin - forgo at this time * Continue Correctional insulin * Novolog ACHS * Correction factor: 25 mg/dL/unit * Carb ratio: 1 unit per 12g of CHO consumed * Goal range: 100-140mg/dL for non-elderly, non-ICU patient * Oral medications: * hold at this time * A1c - current * added to discharge instructions LOOKING AHEAD TO DISCHARGE: * Patient having hypoglycemia at home- will require a change to medications * Recommend discontinuing glyburide with meals and follow-up with MD as outpatient soon after discharge * Continue both Metformin and Prandin PO * Please note that the plan above was derived based on current level of insulin resistance and hospital stress. These recommendations are appropriate for inpatient admission only. Plan of care upon discharge will need to be reassessed to avoid potential outpatient hypo/hyperglycemia. Thank you.
[2016-09-26] MEDS ORDERED: EpHEDrine SULFATE INJ 50 MG/ML AMP ONE (11:42)
--- NOTE | 2016-09-26 12:29 | DIAGNOSTIC IMAGING REPORT ---
INTRAOPERATIVE RADIOGRAPHS CLINICAL HISTORY: Open reduction and internal fixation of the second toe. Fluoroscopy time: 4 seconds. FINDINGS: 2 spot fluoroscopic images of the left forefoot are compared to radiographs dated 09/24/2016. Findings suggest osteotomy involving the head of the second proximal phalanx. A pin transfixes the phalanges of the second toe which are in anatomic alignment. Overlying soft tissue edema is noted. IMPRESSION: Intraoperative images from left second toe fixation as above. Electronically signed by: Gabriel Churchill M.D. 09/26/2016 12:28 PM Dictated Date/Time: 09/26/2016 12:26 PM
[2016-09-26] MEDS ORDERED: BUPIVACAINE/EPINEPHRINE 0.25% 1:200,000 30 ML VIAL ONE (12:51)
[2016-09-26] MEDS ORDERED: DEXAMETHASONE SOD INJ 4 MG/ML VIAL ONE (12:52)
[2016-09-26] MEDS: HEPARIN SOD 5000 UNIT/0.5 ML CARP SQ SCH ×2 (13:05→21:04)
--- NOTE | 2016-09-26 13:34 | Anesthesiology Progress Note ---
Anesthesia Post Op Note Date & Time Sep 26, 2016 at 13:34 Vital Signs Pain Intensity: 0.0 Vital Signs Past 12 Hours Date Time Temp Pulse Resp B/P Pulse Ox O2 Delivery O2 Flow Rate FiO2 09/26/16 13:00 36.5 62 15 116/68 91 Room Air 09/26/16 13:00 92 Room Air 09/26/16 12:30 59 16 141/85 95 Room Air 09/26/16 12:20 36.5 59 16 146/88 100 Nasal Cannula 2 09/26/16 12:10 61 16 138/71 98 Nasal Cannula 2 09/26/16 12:00 57 15 146/79 100 Nasal Cannula 2 09/26/16 11:50 36 66 16 150/88 100 Nasal Cannula 2 09/26/16 08:06 37.6 53 15 120/66 93 Room Air 09/26/16 07:50 92 Room Air 09/26/16 04:15 107/68 Notes Mental Status: alert / awake / arousable, participated in evaluation Pt Amnestic to Procedure: Yes Nausea / Vomiting: adequately controlled Pain: adequately controlled Airway Patency, RR, SpO2: stable & adequate BP & HR: stable & adequate Hydration State: stable & adequate Anesthetic Complications: no major complications apparent Block working well in pacu
--- NOTE | 2016-09-26 13:59 | OPERATIVE REPORT ---
DATE OF OPERATION: 09/26/2016 SURGEON: Annie Pope DPM DOCTOR OF VETERINARY MEDICINE: None. PREOPERATIVE DIAGNOSES: 1. Fracture left second digit. 2. History of ulceration left second digit, rule out osteomyelitis. POSTOPERATIVE DIAGNOSES: Same. PROCEDURES: I\T\D left second digit with incision of bone cortex and secondary closure of the wound, ORIF fracture, left second digit. ANESTHESIA: IV with local sedation, preoperative block performed by anesthesia. HEMOSTASIS: Pneumatic ankle tourniquet inflated to 250 mmHg. ESTIMATED BLOOD LOSS: Less than 5 mL. MATERIALS: 2-0, 3-0 Vicryl; 4-0 nylon; 0.045 K-wire. INJECTABLES: None. COMPLICATIONS: None. HISTOPATHOLOGY: Deep culture taken. Soft tissue and bone was sent for culture. FINDINGS: There was no deep abscess or fluid pocket noted. Bone was hard with no signs of softness of the proximal phalanx. There was a fracture over the head of the proximal phalanx that was leading to ulceration with displacement of the distal aspect of the toe laterally. DESCRIPTION OF PROCEDURE: The patient was brought to the OR and placed on the OR table in supine position. Upon completion of general anesthesia and a field block performed by the anesthesia department, a well-padded ankle tourniquet was applied to the left lower extremity. The extremity was scrubbed, prepped and draped in the usual aseptic fashion. Attention was directed to the dorsal aspect of left second digit. A curvilinear incision was made over the metatarsophalangeal joint extending down to the toe, left second digit. Dissection was carried down to the level of the fracture area. It was quite hypoproliferative with thickened capsule. Extensor tendon was transected at this level for exposure of the head of the proximal phalanx. It was seen that the fracture fragment was leading to the ulceration of the medial aspect of the toe with distal aspect of the toe displaced laterally. Bone was resected in both ends of the area overlying the ulceration. This was hard; however, it was somewhat malformed, one due to the exposure and two to get an end to infusion. This was removed using a sagittal saw. This bone was sent for culture. At this time, the wound was irrigated with 6000 units of saline with bacitracin. A 0.045 K-wire was then retrograded through the distal aspect of the toe crossing the proximal phalanx and did not extending across the proximal phalanx. Fluoroscan was used to check positioning. Closure began the repair of the tendon using 2-0 Vicryl. Superficial deep structures closed using 3-0 Vicryl in a box stitch technique. Skin margins closed using 3-0 nylon. Pneumatic ankle tourniquet was released with hyperemic roche to digits 1 through 5. Dry sterile compressive dressing consisting of Adaptic, 4 x 4's, Kerlix, a Betadine ointment over the pin site, and an Colin was applied. The patient tolerated the procedure and anesthesia well without complications, transferred to recovery room with vital signs stable and neurovascular status intact. Long-term plan readmission to the floor to continue with vancomycin and Zosyn due to the bone exposure and diabetes with rheumatoid arthritis and questionable underlying osteomyelitis, recommended 6 weeks of IV antibiotics. Currently, the cultures are growing out coagulase negative Staph. We would recommend 6 weeks of vancomycin. Her renal function has been stable. Her trough is 14.9 today. The stop date would be 6 weeks post-surgery which would be on November 07. We will discuss the findings with the hospitalist. I attest to the content of the Intraoperative Record and any orders documented therein. Any exceptio ns are noted below.
--- NOTE | 2016-09-26 15:30 | Infectious Disease Progress Nt ---
Progress Note Date of Service Sep 26, 2016. Subjective Pt evaluation today including: conversation w/ patient, physical exam, chart review, lab review, review of studies, review of inpatient medication list Patient is feeling well today. Her MRI showed pathologic marrow edema of the proximal phalanx of the 2nd toe and middle phalanx of the second toe favoring traumatic fracture versus osteomyelitis. Chest X-ray showed no acute process. WBC count this morning was 9.45. Creatinine was 0.84. She is currently on Vancomycin and Zosyn. Repeat culture is growing coag-negative staph only on the final culture. Deep cultures are pending from surgery. She is now s/p I &D of the left second digit with incision of bone cortex and secondary closure of the wound with ORIF fracture of the left second digit. Operative report was reviewed and it was noted that the bone was hard and did not appear infected. All Other Systems: Reviewed and Negative Medications Current Inpatient Medications Medications (Trade) Dose Ordered Sig/Josie Route Start Time Stop Time Status Last Admin Dose Admin Heparin Sodium (Porcine) (Heparin Sq 5000 Unit/0.5ml) 5,000 unit Q8 SQ 09/24/16 22:00 10/24/16 21:59 Future hold 09/26/16 13:05 5,000 UNIT Acetaminophen (Tylenol Tab) 650 mg Q4H PRN PO 09/24/16 13:00 10/24/16 12:59 Al Hydrox/Mg Hydrox/Simethicone (Maalox Max Susp) 15 ml Q4H PRN PO 09/24/16 13:00 10/24/16 12:59 Magnesium Hydroxide (Milk Of Magnesia Susp) 30 ml Q6H PRN PO 09/24/16 13:00 10/24/16 12:59 Polyethylene (Miralax Powder Packet) 17 gm DAILY PRN PO 09/24/16 13:00 10/24/16 12:59 Ondansetron HCl (Zofran Inj) 4 mg Q6H PRN IV 09/24/16 13:00 10/24/16 12:59 Glucose (Glucose 40% Gel) 15-30 GRAMS 15 GRAMS... UD PRN PO 09/24/16 13:00 10/24/16 12:59 Glucose (Glucose Chew Tab) 4-8 Tablets 4 Tabl... UD PRN PO 09/24/16 13:00 10/24/16 12:59 Dextrose (Dextrose 50% 50ML Syringe) 25-50ML OF 50% DW IV FOR... UD PRN IV 09/24/16 13:00 10/24/16 12:59 Glucagon (Glucagon Inj) 1 mg UD PRN SQ 09/24/16 13:00 10/24/16 12:59 Miscellaneous Information 1 ea 1 ea UD PRN N/A 09/24/16 13:14 10/24/16 13:13 Vancomycin HCl 1200 mg/Sodium Chloride 274 ml @ 125 mls/hr Q12H IV 09/25/16 04:00 10/05/16 03:59 09/26/16 04:07 125 MLS/HR Piperacillin Sod/ Tazobactam Sod 4.5 gm/Dextrose 120 ml @ 30 mls/hr Q8H IV 09/24/16 20:00 10/04/16 19:59 09/26/16 04:07 30 MLS/HR Sodium Chloride (Nss 1000ml) 1,000 ml @ 50 mls/hr Q20H IV 09/24/16 13:15 10/24/16 13:14 09/25/16 16:50 50 MLS/HR Morphine Sulfate (MoRPHine SULFATE INJ) 1 mg Q4 PRN IV 09/24/16 13:15 10/08/16 13:14 Vancomycin HCl (Consult) 1 ea UD PRN N/A 09/24/16 13:30 10/24/16 13:29 Piperacillin Sod/ Tazobactam Sod (Consult) 1 ea UD PRN N/A 09/24/16 13:30 10/24/16 13:29 Albuterol (Ventolin Hfa Inhaler) 2 puffs Q6 PRN INH 09/24/16 14:15 10/24/16 14:14 Aspirin (Ecotrin Tab) 81 mg DAILY PO 09/25/16 09:00 10/25/16 08:59 09/25/16 08:36 81 MG Atenolol (Tenormin Tab) 12.5 mg DAILY PO 09/25/16 09:00 10/25/16 08:59 09/26/16 09:47 12.5 MG Cholecalciferol (Vitamin D Tab) 1,000 inter.unit BID PO 09/24/16 21:00 10/24/16 20:59 1/31/17 20:58 1,000 INTER.UNIT Fluticasone Propionate (Flonase Nasal [place]) 2 sprays DAILY NISA 09/25/16 09:00 10/25/16 08:59 09/25/16 08:39 2 SPRAYS Folic Acid (Folvite Tab) 1 mg DAILY PO 09/25/16 09:00 10/25/16 08:59 09/25/16 08:36 1 MG Gabapentin (Neurontin Cap) 300 mg BID PO 09/24/16 21:00 10/24/16 20:59 09/25/16 20:59 300 MG Nitroglycerin (Nitrostat Tab) 0.4 mg UD PRN SL 09/24/16 14:15 10/24/16 14:14 Sodium Chloride ([place] Nasal [place]) 1 sprays Q2H PRN NISA 09/24/16 14:15 10/24/16 14:14 Simvastatin (Zocor Tab) 20 mg HS PO 09/24/16 21:00 10/24/16 20:59 09/25/16 20:56 20 MG Sulindac (Clinoril Tab) 200 mg BID PO 09/24/16 21:00 10/24/16 20:59 09/25/16 20:58 200 MG Trazodone HCl (Desyrel Tab) 50 mg BID PO 09/24/16 21:00 10/24/16 20:59 09/25/16 21:00 50 MG Magnesium Oxide (Mag-Ox Tab) 400 mg DAILY PO 09/25/16 09:00 10/25/16 08:59 09/25/16 08:39 400 MG Pantoprazole Sodium (Protonix Tab) 40 mg QAM PO 09/25/16 09:00 10/25/16 08:59 09/25/16 08:36 40 MG Artificial Tears (Artificial Tears) 1 drops QID PRN OP 09/24/16 14:15 10/24/16 14:14 Ascorbic Acid (Vitamin C Tab) 1,000 mg BID PO 09/24/16 21:00 10/24/16 20:59 09/25/16 20:57 1,000 MG Gadobutrol (Gadavist) 8 mmol UD PRN IV 09/24/16 18:45 09/28/16 18:44 Enalapril Maleate (Vasotec Tab) 40 mg HS PO 09/25/16 21:00 10/25/16 20:59 09/25/16 21:01 40 MG Fentanyl Citrate (Fentanyl Inj) 50 mcg Q5M PRN IV 09/26/16 10:30 09/26/16 15:30 Ondansetron HCl 4 mg 4 mg ONE PRN IV 09/26/16 10:30 09/26/16 15:30 Promethazine HCl/ Sodium Chloride (Phenergan Inj/ Nss 50ml) 50.25 ml @ 202 mls/hr ONE PRN IV 09/26/16 10:30 09/26/16 15:30 Ephedrine Sulfate (EpHEDrine SULFATE INJ) 5 mg Q5M PRN IV 09/26/16 10:30 09/26/16 15:30 Atropine Sulfate (Atropine Sulfate 0.1MG/Ml Inj) 0.5 mg Q1M PRN IV 09/26/16 10:30 09/26/16 15:30 Insulin Aspart (novoLOG ASPART) SLIDING SCALE ACHS SC 09/26/16 17:15 10/26/16 17:14 Objective Vital Signs Date Time Temp Pulse Resp B/P Pulse Ox O2 Delivery O2 Flow Rate FiO2 09/26/16 14:10 36.7 69 17 107/69 91 Room Air 09/26/16 13:30 36.4 70 16 137/71 91 Room Air 09/26/16 13:00 36.5 62 15 116/68 91 Room Air 09/26/16 13:00 92 Room Air 09/26/16 12:30 59 16 141/85 95 Room Air 09/26/16 12:20 36.5 59 16 146/88 100 Nasal Cannula 2 09/26/16 12:10 61 16 138/71 98 Nasal Cannula 2 09/26/16 12:00 57 15 146/79 100 Nasal Cannula 2 09/26/16 11:50 36 66 16 150/88 100 Nasal Cannula 2 09/26/16 08:06 37.6 53 15 120/66 93 Room Air 09/26/16 07:50 92 Room Air 09/26/16 04:15 107/68 09/25/16 23:13 36.7 50 18 94/60 92 Room Air 09/25/16 15:20 36.6 74 18 106/57 92 Room Air Physical Exam General Appearance: no apparent distress, + obese Eyes: normal inspection, sclerae normal ENT: hearing grossly normal Neck: supple, trachea midline Respiratory/Chest: no respiratory distress, no accessory muscle use Cardiovascular: regular rate, rhythm Extremities: normal range of motion, + pertinent finding (dressing on the left lower extremity, C/D/I. Right lower extremity with SCD in place.) Neurologic/Psychiatric: alert, normal mood/affect Skin: warm/dry, no rash Laboratory Results MRI THE LEFT FOREFOOT WITHOUT AND WITH GADOLINIUM CLINICAL HISTORY: Left second toe nonhealing diabetic ulcer COMPARISON STUDY: Conventional radiographic study dated 09/24/2016 FINDINGS: Imaging was performed in sagittal coronal and axial planes before and after the administration of 8 cc of intravenous Gadavist. There are erosive osteoarthritic changes the level of the interphalangeal joint of the great toe. There are multiple bony erosions involving the first metatarsal head. There are bony erosions involving the fifth metatarsal head. There is a subchondral cyst involving the base of the fourth metatarsal. There is extensive marrow edema involving the proximal phalanx of the second phalanx, and base of the middle phalanx. There is a displaced fracture at the level of the proximal interphalangeal joint of the second toe. There is extensive surrounding soft tissue edema. There is an adjacent 5 mm fluid collection. There is extensive post gadolinium enhancement involving the second toe. There is synovial enhancement the level of the fifth metatarsal phalangeal joint and first metatarsal phalangeal joint. Diagnostic considerations for the findings involving the second toe include a traumatic fracture, versus osteomyelitis with a pathologic fracture. Correlation with any history of trauma is recommended. Also evident are findings consistent with an inflammatory arthritis with synovial enhancement, and multiple bony erosions IMPRESSION: 1. Pathologic marrow edema involving the proximal phalanx the second toe and middle phalanx the second toe. Diagnostic considerations include a traumatic fracture versus osteomyelitis with a pathologic fracture. There is surrounding soft tissue edema as well as a possible 5 mm soft tissue abscess. Correlation with history of prior trauma is recommended. In the absence of a traumatic history, given the history of an overlying nonhealing ulcer, the findings likely represent osteomyelitis with a pathologic displaced fracture. 2. Evidence of an inflammatory arthritis with synovial enhancement and multiple bony erosions, most pronounced at the level of the first and fifth metatarsal phalangeal joints Item Value Date Time Gram Stain Received 09/26/16 0000 Tissue Toe Left 2 Pending Gram Stain - Final Complete 09/24/16 1400 Skin Toe Left 2 Gram Stain Received 09/26/16 0000 Drainage-Deep Toe Left 2 Pending MRSA DNA Surveillance Screen - Final Complete 09/24/16 1400 Nasal Specimen Positive for MRSA by DNA Probe Last 24 Hours Test 09/25/16 17:04 09/25/16 20:48 09/26/16 03:27 09/26/16 05:58 Bedside Glucose 115 mg/dl 119 mg/dl 141 mg/dl White Blood Count 9.45 K/uL Red Blood Count 3.73 M/uL Hemoglobin 10.8 g/dL Hematocrit 33.8 % Mean Corpuscular Volume 90.6 fL Mean Corpuscular Hemoglobin 29.0 pg Mean Corpuscular Hemoglobin Concent 32.0 g/dl RDW Standard Deviation 47.1 fL RDW Coefficient of Variation 14.6 % Platelet Count 282 K/uL Mean Platelet Volume 9.5 fL Sodium Level 145 mmol/L Potassium Level 4.2 mmol/L Chloride Level 108 mmol/L Carbon Dioxide Level 27 mmol/L Anion Gap 10.0 mmol/L Blood Urea Nitrogen 14 mg/dl Creatinine 0.84 mg/dl Est Creatinine Clear Calc Drug Dose 70.0 ml/min Estimated GFR () 86.9 Estimated GFR (Non- 75.0 BUN/Creatinine Ratio 16.7 Random Glucose 145 mg/dl Calcium Level 8.7 mg/dl Magnesium Level 1.9 mg/dl Vancomycin Level Trough 14.9 mcg/ml Test 09/26/16 11:51 Bedside Glucose 148 mg/dl Assessment and Plan Patient with chronic, diabetic, 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 Repeat culture showed coag-negative staph which is likely skin contaminant and surgical culture is pending. Will continue patient on IV Vancomycin for now and D/C Zosyn. Will continue to follow repeat cultures and adjust antibiotics as necessary. Seems likely that patient had nonhealing of her wound due to underlying fracture. Because the bone appeared hard during surgery and non- infected, likely the patient will be able to transition to PO abx therapy upon discharge. She likely will need continued wound care. We will follow. Case reviewed and agree with above assessment
--- NOTE | 2016-09-26 15:44 | DIAGNOSTIC IMAGING REPORT ---
LEFT FOOT MIN 3 VIEWS ROUTINE CLINICAL HISTORY: postop COMPARISON: None. DISCUSSION: Evidence for pin fixation of the linear pin traversing the phalanges of the second toe. Osteotomy of the proximal interphalangeal joint. Considerable degenerative change great toe with more moderate degenerative changes throughout all remaining osseous structures. There is no evidence for soft tissue swelling. IMPRESSION: Anatomic alignment status post pinning of the phalanges of the second toe. Electronically signed by: Steve Paul M.D. 09/26/2016 3:43 PM Dictated Date/Time: 09/26/2016 3:42 PM
[2016-09-26] MEDS: ENALAPRIL MALEATE 10 MG TAB PO SCH (20:14)
[2016-09-26] MEDS: SIMVASTATIN 20 MG TAB PO SCH (20:16)
[2016-09-27 03:35] VITALS: BP 111/66; PULSE 60; TEMP 36.6; O2SAT 95
[2016-09-27] MEDS: VANCOMYCIN INJ 1,200 MG in SODIUM CHLORIDE 0.9% 250ML 250 ML IV SCH (03:47)
[2016-09-27] MEDS: HEPARIN SOD 5000 UNIT/0.5 ML CARP SQ SCH (06:04)
[2016-09-27 06:33] LABS: MEAN CELL VOLUME 89.3 fL (80-100); MEAN CORPUSCULAR HEMOGLOBIN 28.3 pg (25-34); MEAN CORPUSCULAR HGB CONC 31.7 g/dl (32-36); MEAN PLATELET VOLUME 9.7 fL (7.4-10.4); PLATELET COUNT 333 K/uL (130-400); RED BLOOD COUNT 3.92 M/uL (4.2-5.4); WHITE BLOOD COUNT 13.86 K/uL (4.8-10.8)
[2016-09-27 07:02] LABS: BUN/CREATININE RATIO 16.3 (10-20); CALCIUM 8.7 mg/dl (8.5-10.1); CREATININE 0.73 mg/dl (0.60-1.20); MAGNESIUM 1.9 mg/dl (1.8-2.4); POTASSIUM 4.1 mmol/L (3.5-5.1)
[2016-09-27 07:31] VITALS: BP 134/77; PULSE 61; TEMP 36.7; O2SAT 93
[2016-09-27] MEDS: SODIUM CHLORIDE 0.9% 1000ML 1,000 ML IV SCH (07:42)
--- NOTE | 2016-09-27 09:33 | Anesthesiology Progress Note ---
Anesthesia Post Op Note Date & Time Sep 27, 2016 at 09:31 Vital Signs Pain Intensity: 0.0 Vital Signs Past 12 Hours Date Time Temp Pulse Resp B/P Pulse Ox O2 Delivery O2 Flow Rate FiO2 09/27/16 08:26 Room Air 09/27/16 07:50 Room Air 09/27/16 07:31 36.7 61 14 134/77 93 Room Air 09/27/16 03:35 36.6 60 16 111/66 95 Room Air 09/26/16 23:30 Room Air 09/26/16 23:08 36.7 59 16 109/64 91 Room Air Notes Mental Status: alert / awake / arousable, participated in evaluation Pt Amnestic to Procedure: Yes Nausea / Vomiting: adequately controlled Pain: adequately controlled Airway Patency, RR, SpO2: stable & adequate BP & HR: stable & adequate Hydration State: stable & adequate Anesthetic Complications: no major complications apparent
[2016-09-27] MEDS: INSULIN ASPART 100 UNITS/ML 3 ML PEN SC SCH ×2 (09:34→13:18)
[2016-09-27] MEDS: FLUTICASONE PROPIONATE NA SPR 16 GM BTL NAE SCH (09:38)
[2016-09-27] MEDS: ASPIRIN 81 MG ECTAB PO SCH (09:39)
[2016-09-27] MEDS: SULINDAC 200 MG TAB PO SCH (09:39)
[2016-09-27] MEDS: GABAPENTIN 300 MG CAP PO SCH (09:40)
[2016-09-27] MEDS: CHOLECALCIFEROL 1000 INTER.UNIT TAB PO SCH (09:40)
[2016-09-27] MEDS: MAGNESIUM OXIDE 400 MG TAB PO SCH (09:40)
[2016-09-27] MEDS: PANTOprazole SOD 40 MG TAB PO SCH (09:41)
[2016-09-27] MEDS: ASCORBIC ACID 500 MG TAB PO SCH (09:41)
[2016-09-27] MEDS: TRAZODONE HCL 50 MG TAB PO SCH (09:43)
--- NOTE | 2016-09-27 10:06 | Anesthesiology Progress Note ---
Anesthesia Post Op Note Date & Time Sep 27, 2016 at 10:05 Vital Signs Pain Intensity: 0.0 Vital Signs Past 12 Hours Date Time Temp Pulse Resp B/P Pulse Ox O2 Delivery O2 Flow Rate FiO2 09/27/16 08:26 Room Air 09/27/16 07:50 Room Air 09/27/16 07:31 36.7 61 14 134/77 93 Room Air 09/27/16 03:35 36.6 60 16 111/66 95 Room Air 09/26/16 23:30 Room Air 09/26/16 23:08 36.7 59 16 109/64 91 Room Air Notes Mental Status: alert / awake / arousable, participated in evaluation Pt Amnestic to Procedure: Yes Nausea / Vomiting: adequately controlled Pain: adequately controlled Airway Patency, RR, SpO2: stable & adequate BP & HR: stable & adequate Hydration State: stable & adequate Anesthetic Complications: no major complications apparent
--- NOTE | 2016-09-27 10:26 | Infectious Disease Progress Nt ---
Progress Note Date of Service Sep 27, 2016. Subjective Pt evaluation today including: conversation w/ patient, physical exam, chart review, lab review, review of studies, conversation w/ [facility] consultant (Dr. Pope) , review of inpatient medication list WBC count this morning was 13.86. Her creatinine is stable at 0.73. Her surgical cultures are pending, but gram stain showed no WBC's or organisms. She continues on IV Vancomycin. Patient states that her pain is well controlled. I spoke with Dr. Pope this morning regarding this patient. She feels that the bone was broken and was very close to protruding through the surface ulceration. She did also resect the portion of bone that she felt could have been infected, though she feels the patient should continue on IV therapy for 6 week following surgery. All Other Systems: Reviewed and Negative Medications Current Inpatient Medications Medications (Trade) Dose Ordered Sig/Josie Route Start Time Stop Time Status Last Admin Dose Admin Heparin Sodium (Porcine) (Heparin Sq 5000 Unit/0.5ml) 5,000 unit Q8 SQ 09/24/16 22:00 10/24/16 21:59 Future hold 09/27/16 06:04 5,000 UNIT Acetaminophen (Tylenol Tab) 650 mg Q4H PRN PO 09/24/16 13:00 10/24/16 12:59 Al Hydrox/Mg Hydrox/Simethicone (Maalox Max Susp) 15 ml Q4H PRN PO 09/24/16 13:00 10/24/16 12:59 Magnesium Hydroxide (Milk Of Magnesia Susp) 30 ml Q6H PRN PO 09/24/16 13:00 10/24/16 12:59 Polyethylene (Miralax Powder Packet) 17 gm DAILY PRN PO 09/24/16 13:00 10/24/16 12:59 Ondansetron HCl (Zofran Inj) 4 mg Q6H PRN IV 09/24/16 13:00 10/24/16 12:59 Glucose (Glucose 40% Gel) 15-30 GRAMS 15 GRAMS... UD PRN PO 09/24/16 13:00 10/24/16 12:59 Glucose (Glucose Chew Tab) 4-8 Tablets 4 Tabl... UD PRN PO 09/24/16 13:00 10/24/16 12:59 Dextrose (Dextrose 50% 50ML Syringe) 25-50ML OF 50% DW IV FOR... UD PRN IV 09/24/16 13:00 10/24/16 12:59 Glucagon (Glucagon Inj) 1 mg UD PRN SQ 09/24/16 13:00 10/24/16 12:59 Miscellaneous Information 1 ea 1 ea UD PRN N/A 09/24/16 13:14 10/24/16 13:13 Sodium Chloride (Nss 1000ml) 1,000 ml @ 50 mls/hr Q20H IV 09/24/16 13:15 10/24/16 13:14 09/27/16 07:42 50 MLS/HR Morphine Sulfate (MoRPHine SULFATE INJ) 1 mg Q4 PRN IV 09/24/16 13:15 10/08/16 13:14 Albuterol (Ventolin Hfa Inhaler) 2 puffs Q6 PRN INH 09/24/16 14:15 10/24/16 14:14 Aspirin (Ecotrin Tab) 81 mg DAILY PO 09/25/16 09:00 10/25/16 08:59 09/27/16 09:39 81 MG Atenolol (Tenormin Tab) 12.5 mg DAILY PO 09/25/16 09:00 10/25/16 08:59 09/26/16 09:47 12.5 MG Cholecalciferol (Vitamin D Tab) 1,000 inter.unit BID PO 09/24/16 21:00 10/24/16 20:59 09/27/16 09:40 1,000 INTER.UNIT Fluticasone Propionate (Flonase Nasal [place]) 2 sprays DAILY NISA 09/25/16 09:00 10/25/16 08:59 09/27/16 09:38 2 SPRAYS Folic Acid (Folvite Tab) 1 mg DAILY PO 09/25/16 09:00 10/25/16 08:59 09/27/16 09:41 1 MG Gabapentin (Neurontin Cap) 300 mg BID PO 09/24/16 21:00 10/24/16 20:59 09/27/16 09:40 300 MG Nitroglycerin (Nitrostat Tab) 0.4 mg UD PRN SL 09/24/16 14:15 10/24/16 14:14 Sodium Chloride ([place] Nasal [place]) 1 sprays Q2H PRN NISA 09/24/16 14:15 10/24/16 14:14 Simvastatin (Zocor Tab) 20 mg HS PO 09/24/16 21:00 10/24/16 20:59 09/26/16 20:16 20 MG Sulindac (Clinoril Tab) 200 mg BID PO 09/24/16 21:00 10/24/16 20:59 09/27/16 09:39 200 MG Trazodone HCl (Desyrel Tab) 50 mg BID PO 09/24/16 21:00 10/24/16 20:59 09/27/16 09:43 50 MG Magnesium Oxide (Mag-Ox Tab) 400 mg DAILY PO 09/25/16 09:00 10/25/16 08:59 09/27/16 09:40 400 MG Pantoprazole Sodium (Protonix Tab) 40 mg QAM PO 09/25/16 09:00 10/25/16 08:59 09/27/16 09:41 40 MG Artificial Tears (Artificial Tears) 1 drops QID PRN OP 09/24/16 14:15 10/24/16 14:14 Ascorbic Acid (Vitamin C Tab) 1,000 mg BID PO 09/24/16 21:00 10/24/16 20:59 09/27/16 09:41 1,000 MG Gadobutrol (Gadavist) 8 mmol UD PRN IV 09/24/16 18:45 09/28/16 18:44 Enalapril Maleate (Vasotec Tab) 40 mg HS PO 09/25/16 21:00 10/25/16 20:59 09/26/16 20:14 40 MG Insulin Aspart (novoLOG ASPART) SLIDING SCALE ACHS SC 09/26/16 17:15 10/26/16 17:14 09/27/16 09:34 8 UNITS Heparin Sodium (Porcine) 5 ml 5 ml PRN PRN FLUSH 09/27/16 06:30 10/27/16 06:29 Daptomycin/Sodium Chloride ([place] IV/Nss 50ml) 57 ml @ 100 mls/hr DAILY@1200 IV 09/27/16 12:00 10/27/16 11:59 Objective Vital Signs Date Time Temp Pulse Resp B/P Pulse Ox O2 Delivery O2 Flow Rate FiO2 09/27/16 08:26 Room Air 09/27/16 07:50 Room Air 09/27/16 07:31 36.7 61 14 134/77 93 Room Air 09/27/16 03:35 36.6 60 16 111/66 95 Room Air 09/26/16 23:30 Room Air 09/26/16 23:08 36.7 59 16 109/64 91 Room Air 09/26/16 20:30 36.6 72 18 126/81 94 Room Air 09/26/16 16:30 93 Room Air 09/26/16 16:00 36.5 76 18 126/64 93 Room Air 09/26/16 15:00 36.3 58 18 120/66 93 Room Air 09/26/16 14:10 36.7 69 17 107/69 91 Room Air 09/26/16 13:30 36.4 70 16 137/71 91 Room Air 09/26/16 13:00 36.5 62 15 116/68 91 Room Air 09/26/16 13:00 92 Room Air 09/26/16 12:30 59 16 141/85 95 Room Air 09/26/16 12:20 36.5 59 16 146/88 100 Nasal Cannula 2 09/26/16 12:10 61 16 138/71 98 Nasal Cannula 2 09/26/16 12:00 57 15 146/79 100 Nasal Cannula 2 09/26/16 11:50 36 66 16 150/88 100 Nasal Cannula 2 Physical Exam General Appearance: no apparent distress, + obese Eyes: normal inspection, sclerae normal ENT: hearing grossly normal Neck: supple, trachea midline Respiratory/Chest: no respiratory distress, no accessory muscle use Cardiovascular: regular rate, rhythm Extremities: + pertinent finding (left lower extremity with dressing in place. c/d/i) Neurologic/Psychiatric: alert, normal mood/affect Skin: normal color, warm/dry, no rash Laboratory Results RUN DATE: 09/27/16 [facility] LAB PAGE 1 RUN TIME: 735 Specimen Inquiry PATIENT: SARAH GONZALES LOC: [facility] U # : [id number] AGE/SX: 61/F ROOM: [facility] REG : 09/24/[address]: Anisha Browne M.D. : 1955 BED: 2 DIS : STATUS: ADM IN TLOC: SPEC #: [id number] MARYSOL: 09/26/16-UNK STATUS: RES REQ #: [id number] RECD: 09/26/[address]: Anisha Browne M.D. SOURCE: TISSUE ENTR: 09/26/[address] [facility] [address]: Abelino Lincoln D.[place] SPDESC: John Neal MD, Joylin ., M.D. Pervez, Ayesha H., M.D. Weikert, Christine E., D.PJustina ORDERED: AER/NADIRA CULTSMR Procedure Result Verified Site GRAM STAIN Final 09/27/16-735 RESULT NO WBCs SEEN NO ORGANISMS SEEN OR AER/NADIRA CULT Results Pending Item Value Date Time Gram Stain - Final Resulted 09/26/16 0000 Tissue Toe Left 2 Gram Stain - Final Resulted 09/26/16 0000 Drainage-Deep Toe Left 2 Gram Stain - Final Complete 09/24/16 1400 Skin Toe Left 2 Last 24 Hours Test 09/26/16 11:51 09/26/16 16:52 09/26/16 20:52 09/26/16 23:34 Bedside Glucose 148 mg/dl 221 mg/dl 307 mg/dl 241 mg/dl Test 09/27/16 06:00 09/27/16 07:32 White Blood Count 13.86 K/uL Red Blood Count 3.92 M/uL Hemoglobin 11.1 g/dL Hematocrit 35.0 % Mean Corpuscular Volume 89.3 fL Mean Corpuscular Hemoglobin 28.3 pg Mean Corpuscular Hemoglobin Concent 31.7 g/dl RDW Standard Deviation 46.6 fL RDW Coefficient of Variation 14.6 % Platelet Count 333 K/uL Mean Platelet Volume 9.7 fL Sodium Level 142 mmol/L Potassium Level 4.1 mmol/L Chloride Level 107 mmol/L Carbon Dioxide Level 27 mmol/L Anion Gap 8.0 mmol/L Blood Urea Nitrogen 12 mg/dl Creatinine 0.73 mg/dl Est Creatinine Clear Calc Drug Dose 80.6 ml/min Estimated GFR () 103.0 Estimated GFR (Non- 88.9 BUN/Creatinine Ratio 16.3 Random Glucose 167 mg/dl Calcium Level 8.7 mg/dl Magnesium Level 1.9 mg/dl Bedside Glucose 154 mg/dl Assessment and Plan Patient with chronic, diabetic, 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 After speaking with Dr. Pope, she prefers that the patient continue IV Vancomycin to complete 6 weeks. I suggested change to IV Daptomycin for ease of use pending coverage. Her stop date would be November 07. She will need ID follow up as an outpatient as well. Otherwise, she is OK for D/C pending home antibiotic therapy. Case reviewed and agree with above assessment.
[2016-09-27 11:44] VITALS: BP 117/76; PULSE 65; TEMP 36.7; O2SAT 95
[2016-09-27] MEDS ORDERED: DAPTOmycin IV 350 MG in SODIUM CHLORIDE 0.9% 50ML 50 ML IV SCH (12:00)
[2016-09-27] MEDS ORDERED: DAPT500I IV (12:27)
[2016-09-27] MEDS ORDERED: OXYC-57 PO (12:27)
--- NOTE | 2016-09-27 12:30 | PROGRESS NOTE ---
DATE: 09/27/2016 SUBJECTIVE: The patient is seen at bedside postoperative day 1, notes very little discomfort. Notes very little discomfort, still has numbness in her left leg. Eating and voiding well. Denies fevers, chills and night sweats. The patient presents with multiple questions regarding intraoperative findings and long-term care recommendations. OBJECTIVE: VITAL SIGNS: Temperature 36.7, pulse 59, respirations 16, blood pressure 109/64, pulse ox 91%, room air. LOWER EXTREMITY: Vascular swelling noted to the left 2nd digit. Digital pulses palpable. DERMATOLOGIC: Erythema is resolved to the left second digit. There is an ulceration still noted medially over the side, and K-wire sticking distally out of the toe incisional area. Sutures are intact. No active drainage is noted. NEUROLOGICAL: There is good sensation expected for postoperative state, decreased on the left lower extremity. MUSCULOSKELETAL: Good anatomical alignment to the left second digit. Pin is well stabilized across the left second digit. LABORATORY DATA: WBC 13.86, H\T\H 11.1 and 35.1, renal function stable, creatinine 0.73. Vanco trough is 14.9. Micro: Coag negative staph. Wound culture: OR deep culture is still pending bone culture is still pending. IMPRESSION: 1. Status post open reduction and internal fixation of left second digital fracture with incision and drainage postoperative day 1. 2. Cellulitis, left lower extremity, resolved. 3. Leukocytosis secondary to postoperative state. PLAN: I spoke with Adelita from infectious disease, recommended continue IV antibiotics until November 07. Discussed daptomycin versus vancomycin. She will arrange this as an outpatient. Dressing changed at bedside. Recommended to keep the dressing clean, dry and intact. Will follow up weekly at my office for dressing change. For ambulation in surgery shoe at all times. The patient will follow up in my office in 3-5 days upon discharge.
--- NOTE | 2016-09-27 12:39 | Discharge Instructions ---
Discharge Instructions Admission Reason for Admission: Osteomyelitis/Cellulitis Left Foot Discharge Discharge Diagnosis / Problem: Infection of Left 2nd Toe - Bone and Skin Discharge Goals Goal(s): Decrease discomfort, Improve function Activity Recommendations Activity Limitations: per Instructions/Follow-up section use boot on left foot at all times while walking . Instructions / Follow-Up Instructions / Follow-Up Follow up with Dr. Pope SaturdayOctober 01 at 1:00pm Dr. [place] SaturdayOctober 01 at 10:45 AM - [address], [facility] Dr. Mahoney (for Dr. Monsalve) SaturdayOctober 02 at 1:10PM You were admitted to the hospital for an infection and broken left 2nd toe. Dr. Pope took you to the OR to clean out the infection and fix the broken toe. You will need to take IV antibiotics for a total of 6 weeks - home health has been set up to help with this You have a PICC line (IV) in place to get the antibiotics - follow instructions for care given to you by the IV team While you are on the IV antibiotics you are not to take methotrexate and simvastatin These will be resumed by your PCP/electronic development technician If your joints start to hurt while being off the methotrexate - please make an appointment with rheumatology You were also given a prescription for pain medicine - you can take Colace which is over the counter as needed for constipation caused by pain medicines Current Hospital Diet Patient's current hospital diet: Diabetes Type 2 Diet, AHA Diet (Heart Healthy) Discharge Diet Recommended Diet: AHA Diet (Heart Healthy), Diabetes Type 2 Diet Procedures Procedures Performed: Open Reduction Internal Fixation Fracture, Incision and Drainage, Left 2nd toe Pending Studies Studies pending at discharge: no Laboratory Results Hemoglobin A1c Test 09/25/16 05:30 Range/Units Estimated Average Glucose 174 mg/dl Hemoglobin A1c 7.7 H 4.5-5.6 % Medical Emergencies . Who to Call and When: Medical Emergencies: If at any time you feel your situation is an emergency, please call 911 immediately. . Non-Emergent Contact Non-Emergency issues call your: Primary Care Provider Call Non-Emergent contact if: you have a fever, your pain is not controlled, you have any medication questions . . "Provider Documentation" section prepared by [facility]. VTE Core Measure Inpt VTE Proph given/why not?: Unfractionated heparin [place] Drug Monitoring Program Search Results: no issues identified
[2016-09-27 13:23] VITALS: BP 117/76; PULSE 65; TEMP 36.7; O2SAT 95
--- NOTE | 2016-09-27 17:09 | Hospitalist Progress Note ---
Hospitalist Progress Note Date of Service Sep 27, 2016. ([facility] Al[facility]er CRNP) Subjective Patient seen and examined. Feeling well, pain is controlled. No chest pain or shortness of breath. Denies abdominal pain and nausea. ([facility] CRNP) Objective Vital Signs Date Time Temp Pulse Resp B/P Pulse Ox O2 Delivery O2 Flow Rate FiO2 09/27/16 13:23 36.7 65 12 95 Room Air 09/27/16 11:44 36.7 65 12 117/76 95 Room Air 09/27/16 08:26 Room Air 09/27/16 07:50 Room Air 09/27/16 07:31 36.7 61 14 134/77 93 Room Air 09/27/16 03:35 36.6 60 16 111/66 95 Room Air 09/26/16 23:30 Room Air 09/26/16 23:08 36.7 59 16 109/64 91 Room Air 09/26/16 20:30 36.6 72 18 126/81 94 Room Air ([facility] Al[facility]er CRNP) Physical Exam General Appearance: no apparent distress Eyes: normal inspection ENT: hearing grossly normal Neck: supple, no JVD Respiratory/Chest: lungs clear, normal breath sounds, no respiratory distress Cardiovascular: regular rate, rhythm, no edema Abdomen: normal bowel sounds, non tender, soft Extremities: + pertinent finding (dressing dry and intact to left foot) Neurologic/Psychiatric: no motor/sensory deficits, alert, normal mood/affect, oriented x 3 Skin: normal color, warm/dry ([facility] CRNP) Laboratory Results Last 24 Hours Test 09/26/16 20:52 09/26/16 23:34 09/27/16 06:00 09/27/16 07:32 Bedside Glucose 307 mg/dl 241 mg/dl 154 mg/dl White Blood Count 13.86 K/uL Red Blood Count 3.92 M/uL Hemoglobin 11.1 g/dL Hematocrit 35.0 % Mean Corpuscular Volume 89.3 fL Mean Corpuscular Hemoglobin 28.3 pg Mean Corpuscular Hemoglobin Concent 31.7 g/dl RDW Standard Deviation 46.6 fL RDW Coefficient of Variation 14.6 % Platelet Count 333 K/uL Mean Platelet Volume 9.7 fL Sodium Level 142 mmol/L Potassium Level 4.1 mmol/L Chloride Level 107 mmol/L Carbon Dioxide Level 27 mmol/L Anion Gap 8.0 mmol/L Blood Urea Nitrogen 12 mg/dl Creatinine 0.73 mg/dl Est Creatinine Clear Calc Drug Dose 80.6 ml/min Estimated GFR () 103.0 Estimated GFR (Non- 88.9 BUN/Creatinine Ratio 16.3 Random Glucose 167 mg/dl Calcium Level 8.7 mg/dl Magnesium Level 1.9 mg/dl Test 09/27/16 11:41 Bedside Glucose 273 mg/dl ([facility]er CRNP) Assessment and Plan INFECTED LEFT FOOT DIABETIC ULCER, POSSIBLE OSTEOMYELITIS S/P ORIF AND I&D LEFT SECOND TOE - POD #1 - likely pathological fracture leading to the ulceration - referred for direct admission by duty manager Dr. Pope - hx of trauma/persistent infection since May 2016 - wound culture 09/17/16 + MRSA - on admission - + leukocytosis, + lactic acid 3.0; no tachycardia or hypotension - WBC and lactic acid normalized - currently on IV Vanco; Zosyn d/c'd 09/26 - per Dr. Pope - patient will need 6 weeks IV antibiotics; PICC line placed - will be discharged on Dapto per ID recommendations DM TYPE 2 - hgb a1c 7.7 - blood sugars controlled - holding oral agents and utilize SSI while hospitalized - resume home regimen at discharge HYPERTENSION - BP controlled, continue atenolol and quinapril - holding HCTZ - resume at discharge CAD - no reports of chest pain - continue ASA, beta iglesia - will place statin on hold while receiving Dapto ASTHMA - no signs of acute exacerbation RHEUMATOID ARTHRITIS - holding methotrexate during hospitalization and will continued to hold until IV antibiotics completed - discussed with Dr. Emelina FUNG - PPI DVT PROPHYLAXIS - Heparin SQ - on hold due to surgery (Unique Alcocer .MIROSLAVA) Pt was seen and examined. Agreed with [facility] [place] exam, assessment and plan denies any chest pain, palpitation, dizziness and SOB. Pt said that she is doing good. S/p day 1 post op. h/h stable. ID is on board. Pt will be discharge on Daptomycin for 6 weeks. Continue follow up with Podiatry as an outpatient. (Anisha Browne M.D.)
--- NOTE | 2016-09-27 17:18 | Discharge Summary ---
Discharge Summary Admission Date: Sep 24, 2016 at 11:45 Discharge Date: Sep 27, 2016 Discharge Disposition: Home Principal Diagnosis: INFECTED LEFT FOOT DIABETIC ULCER, POSSIBLE OSTEOMYELITIS Secondary Diagnoses/Problems: DM TYPE 2 HYPERTENSION CAD ASTHMA RHEUMATOID ARTHRITIS GERD Procedures: 09/26 - ORIF and I&D left second toe Consultations: Dr. Pope, podiatry Delma Avalos PA-C, infectious disease Pending Studies/Follow-Up: Will need to follow up with Dr. Pope and ID - appointments arranged for both Holding methotrexate until IV antibiotics completed - discussed with Dr. Tarango, if patient develops worsening joint pain, she can make an appointment to see Dr. Tarango Medication Reconciliation New Medications: Daptomycin (Daptomycin) 500 Mg Inj 350 MG IV DAILY for 40 Days Oxycodone/Acetaminophen 5MG/325MG (Percocet 5MG/325MG) Tab 1 TABLET PO Q6H PRN for Pain, #14 TAB PAIN Continued Medications: Acetaminophen (Tylenol Extra Strength) 500 Mg Tab 1000 MG PO HS Albuterol (Ventolin Hfa) 60 Puffs/5400 Mcg Aers 2 PUFFS INH Q6 PRN for Shortness of Breath Aspirin (Aspirin 81) 81 Mg Tab 81 MG PO DAILY Atenolol (Atenolol) 25 Mg Tab 12.5 MG PO DAILY Cholecalciferol (Vitamin D) 1,000 Unit Tab 1000 UNIT PO BID Fluticasone Propionate (Nasal) (Flonase Allergy Relief) 50 Mcg/Act Spr 2 SPRAYS NISA DAILY Folic Acid (Folic Acid) 1 Mg Tab 1 MG PO DAILY Gabapentin (Gabapentin) 300 Mg Cap 300 MG PO BID Glyburide (Micronase) 5 Mg Tab 5 MG PO BIDM, TAB Hydrochlorothiazide (Hctz) 25 Mg Tab 12.5 MG PO DAILY, TAB Magnesium Oxide (Mg Supplement (Mag-200) 200 Mg Tab 200 MG PO DAILY Metformin Ext Rel (Glucophage Ext Rel) 500 Mg Tab 1000 MG PO BID for 30 Days, #120 TAB 3 Refills Nitroglycerin (Nitrostat) 0.4 Mg/1 Tab Subl 1 TAB PO UD PRN for Chest Pain Omeprazole (Prilosec) 40 Mg Cap 40 MG PO DAILY, CAP Polyethylene Glycol-Propylene (Systane) 1 Mechelle Mechelle 1 DROPS OP QID PRN for DRYNESS, #30 ML 5 Refills Quinapril Hcl (Accupril) 40 Mg Tab 40 MG PO HS, TAB Repaglinide (Repaglinide) 2 Mg Tab 4 MG PO TIDM Saline (Cvs Saline Nose [place]) 0.65 % Spr 1 SPRAY NISA Q2H PRN for nasal congestion or dryness Sulindac (Sulindac) 200 Mg Tab 1 TAB PO BID Trazodone HCl (Trazodone HCl) 100 Mg Tab 50 MG PO BID Vitamins C & E (Vitamin C) 1 Cap Cap 1000 MG PO BID Discontinued Medications: Methotrexate (Methotrexate) 2.5 Mg Tab 20 MG PO WK, TAB Simvastatin (Simvastatin) 20 Mg Tab 20 MG PO HS Admission Information HPI (per Admitting provider): This is a 61 year old female with PMH of DM type 2, CAD, HTN, HL, RA, asthma, and other problems listed below who presents as a direct admission from Dr. Pope, metallurgist helper, for left 2nd toe diabetic ulcer with cellulitis. Pt follows with Dr. Monsalve for primary care. Patient states she developed 2 ulcers on the L second toe in May 2016 after her dog stepped on her foot. She was seeing metallurgist helper Dr. Alexey Sims initially. She is currently on second course of antibiotics (she is unsure the name) started 6 days ago. She reports associated pain, erythema, and drainage. She states last week the drainage was purulent, but now appears clear. She has been able to bear weight. She denies fevers, chills, weakness, chest pain, SOB, abdominal pain, N/V/D, dysuria, frequency. She states her Metformin was recently changed and blood sugars are running low at home. Patient had prior wound culture on 09/17/16 which grew MRSA. Physical Exam (per Admitting): General Appearance: no apparent distress, + obese, + pertinent finding ( pleasant alert 61 year old female, at bedside) Head: normocephalic, atraumatic Eyes: normal inspection, sclerae normal ENT: hearing grossly normal Neck: supple, trachea midline Respiratory/Chest: lungs clear, normal breath sounds, no respiratory distress Cardiovascular: regular rate, rhythm, normal peripheral pulses Abdomen/GI: normal bowel sounds, non tender, soft Extremities/Musculoskelatal: no calf tenderness, normal capillary refill, no pedal edema, + pertinent finding (DP pulses 2+ bilaterally) Neurologic/Psych: alert, normal mood/affect, oriented x 3, + pertinent finding (grossly nonfocal ) Skin: warm/dry, + pertinent finding (superficial ulceration medial side of left 2nd toe, not actively draining, + surrounding erythma of the toe) Hospital Course INFECTED LEFT FOOT DIABETIC ULCER, POSSIBLE OSTEOMYELITIS S/P ORIF AND I&D LEFT SECOND TOE - likely pathological fracture leading to the ulceration - hx of trauma/persistent infection since May 2016 - wound culture 09/17/16 + MRSA - on admission - + leukocytosis, + lactic acid 3.0; no tachycardia or hypotension - WBC and lactic acid normalized - received Vanco and Zosyn during admission - being discharged on 6 weeks of IV Dapto; PICC line placed - ID to manage Dapto DM TYPE 2 - hgb a1c 7.7 - blood sugars controlled - holding oral agents and utilize SSI while hospitalized - resume home regimen at discharge HYPERTENSION - BP controlled, continue atenolol, quinapril, and HCTZ CAD - no reports of chest pain - continue ASA, beta iglesia - will place statin on hold while receiving Dapto ASTHMA - no signs of acute exacerbation RHEUMATOID ARTHRITIS - holding methotrexate during hospitalization and will continue to hold until IV antibiotics completed - discussed with Dr. Tarango GERD - PPI Total time spent on discharge = 40 minutes This includes examination of the patient, discharge planning, medication reconciliation, and communication with other providers. Discharge Instructions Discharge Instructions Admission Reason for Admission: Osteomyelitis/Cellulitis Left Foot Discharge Discharge Diagnosis / Problem: Infection of Left 2nd Toe - Bone and Skin Discharge Goals Goal(s): Decrease discomfort, Improve function Activity Recommendations Activity Limitations: per Instructions/Follow-up section use boot on left foot at all times while walking . Instructions / Follow-Up Instructions / Follow-Up Follow up with Dr. Pope SaturdayOctober 01 at 1:00pm Dr. [place] SaturdayOctober 01 at 10:45 AM - [address], [facility] Dr. Mahoney (for Dr. Monsalve) SaturdayOctober 02 at 1:10PM You were admitted to the hospital for an infection and broken left 2nd toe. Dr. Pope took you to the OR to clean out the infection and fix the broken toe. You will need to take IV antibiotics for a total of 6 weeks - home health has been set up to help with this You have a PICC line (IV) in place to get the antibiotics - follow instructions for care given to you by the IV team While you are on the IV antibiotics you are not to take methotrexate and simvastatin These will be resumed by your PCP/packaging clerk If your joints start to hurt while being off the methotrexate - please make an appointment with rheumatology You were also given a prescription for pain medicine - you can take Colace which is over the counter as needed for constipation caused by pain medicines Current Hospital Diet Patient's current hospital diet: Diabetes Type 2 Diet, AHA Diet (Heart Healthy) Discharge Diet Recommended Diet: AHA Diet (Heart Healthy), Diabetes Type 2 Diet Procedures Procedures Performed: Open Reduction Internal Fixation Fracture, Incision and Drainage, Left 2nd toe Pending Studies Studies pending at discharge: no Laboratory Results Hemoglobin A1c Test 09/25/16 05:30 Range/Units Estimated Average Glucose 174 mg/dl Hemoglobin A1c 7.7 H 4.5-5.6 % Medical Emergencies . Who to Call and When: Medical Emergencies: If at any time you feel your situation is an emergency, please call 911 immediately. . Non-Emergent Contact Non-Emergency issues call your: Primary Care Provider Call Non-Emergent contact if: you have a fever, your pain is not controlled, you have any medication questions . . "Provider Documentation" section prepared by [facility]. VTE Core Measure Inpt VTE Proph given/why not?: Unfractionated heparin SQ [place] Drug Monitoring Program Search Results: no issues identified Additional Copies To Dangelo Monsalve M.D. Farley, Patricia M.D.
== END 2016-09-27 13:50 | disposition home health service (06) | DRG 478 ==
LOC: C.MSN 11:45
PROVIDERS: ADMIT Hospitalist; ATTEND Internal Medicine
PROC: 05HB33Z Insertion of Infusion Device into Right Basilic Vein, Percutaneous Approach (ICD-10-PCS; 2016-09-25)
PROC: 0QSR04Z Reposition Left Toe Phalanx with Internal Fixation Device, Open Approach (ICD-10-PCS; principal; 2016-09-26 13:30)
PROC: 0QBR0ZX Excision of Left Toe Phalanx, Open Approach, Diagnostic (ICD-10-PCS; principal; 2016-09-26 13:30)
DX: M84.675A Pathological fracture in other disease, left foot, initial encounter for fracture (principal); M86.9 Osteomyelitis, unspecified; E11.621 Type 2 diabetes mellitus with foot ulcer; L97.523 Non-pressure chronic ulcer of other part of left foot with necrosis of muscle; L03.032 Cellulitis of left toe; B95.62 Methicillin resistant Staphylococcus aureus infection as the cause of diseases classified elsewhere; E11.69 Type 2 diabetes mellitus with other specified complication; E11.649 Type 2 diabetes mellitus with hypoglycemia without coma; I10 Essential (primary) hypertension; I25.10 Atherosclerotic heart disease of native coronary artery without angina pectoris; J45.909 Unspecified asthma, uncomplicated; M06.9 Rheumatoid arthritis, unspecified; K21.9 Gastro-esophageal reflux disease without esophagitis; E78.5 Hyperlipidemia, unspecified; E66.9 Obesity, unspecified; Z68.35 Body mass index [BMI] 35.0-35.9, adult; W54.8XXA Other contact with dog, initial encounter; Z86.14 Personal history of Methicillin resistant Staphylococcus aureus infection; Z98.61 Coronary angioplasty status; Z79.1 Long term (current) use of non-steroidal anti-inflammatories (NSAID); Z79.82 Long term (current) use of aspirin; Z79.84 Long term (current) use of oral hypoglycemic drugs; Z79.899 Other long term (current) drug therapy; Z82.49 Family history of ischemic heart disease and other diseases of the circulatory system; Z83.3 Family history of diabetes mellitus